=== PATIENT | male | born 1945 | race Caucasian/White ===

== ENCOUNTER 2018-06-04 17:58 | Inpatient (IN) ==
--- NOTE | 2018-06-04 18:07 | Emergency Department Note ---
Disposition Clinical Impression: Congestive heart failure, CAD (coronary artery disease), S/P cardiac pacemaker procedure, Cancer of lower lobe of left lung, History of recent pneumonia, COPD (chronic obstructive pulmonary disease), Frail elderly, Anemia, Renal insufficiency, Hypoxemia Disposition: Admitted As Inpatient General Adult HPI - General Stated complaint: Pneumonia x 2 wks,CHF Time Seen by Provider: 06/04/18 18:05 - History of Present Illness HPI Narrative: 72-year-old male reports emergency department complaining of increasing shortness of breath with chest pain. He has a known history of lung malignancy but reports he has been cancer free for 5 years. The patient also describes prior leg thrombus. The patient has a pacemaker as well as a coronary stent, he was recently diagnosed and treated for pneumonia. He has not oxygen dependent COPD. The patient recently had a AAA repair. The patient denies anticoagulant medication or bleeding. There is no history of abdominal pain back pain or syncope. No bleeding of any type. The patient has not been coughing blood. He has no history of CHF. There is been no leg swelling is not on diuretic medications. The patient was evaluated by his primary care physician repeated an x-ray noted worsening changes suggestive of CHF or infectious etiology per report. The patient was sent to the emergency department and states he is here to be admitted. There is no history of fever. He recently finished a course of antibiotics. - Related Data Home Medications Medication Instructions Recorded Confirmed Gabapentin [Gralise] 600 mg PO QID 11/06/15 04/17/18 Pravastatin Sodium [Pravachol] 40 mg PO DAILY 11/06/15 04/17/18 Tamsulosin [Flomax] 2 tab PO HS 11/06/15 04/17/18 Albuterol Sulfate [Albuterol 2 puff IH Q4H PRN 11/07/15 04/17/18 Inhaler] Carbidopa/Levodopa ER 50/200 1 tab PO BID 11/07/15 04/17/18 [Sinemet ER 50-200 Tab] Fluticasone/Vilanterol [Breo 1 puff IH DAILY 11/07/15 04/17/18 Ellipta 200-25 Mcg INH] Nitroglycerin [Nitrostat] 0.4 mg SL AD PRN 03/14/16 04/17/18 Ropinirole HCl [Requip] 4 mg PO HS 03/14/16 04/17/18 Metoprolol [Lopressor] 25 mg PO DAILY 06/27/16 04/17/18 Oxygen 2 each .ROUTE AD 07/18/16 04/17/18 Previous Rx's Medication Instructions Recorded Cyclobenzaprine [Flexeril] 5 mg PO TID #21 tablet 08/23/17 Omeprazole [PriLOSEC] 20 mg PO DAILY #30 cap 08/30/17 Allergies Allergy/AdvReac Type Severity Reaction Status Date / Time oxycodone [From Percocet] AdvReac Nausea Verified 06/04/18 18:17 All systems ED: reviewed and negative except as stated. Past Medical History - Past Medical History Medical history: Reports: aortic aneurysm, arthritis, coronary artery disease, hyperlipidemia, hypertension, myocardial infarction, other Surgical history: Reports: angioplasty/stent, herniorrhaphy, orthopedic, other, other, pacemaker Psychiatric history: Reports: no psych history - Social History Smoking Status: Never smoker Smokeless Tobacco Status: No Alcohol use: Reports: none Drug use: Reports: none Physical Exam - General Limitations: no limitations General appearance: alert, in no apparent distress - Head Head exam: atraumatic, normocephalic, normal inspection - Eye Eye exam: Present: normal appearance, PERRL, EOMI - ENT ENT exam: normal exam, normal oropharynx, mucous membranes moist - Neck Neck exam: Present: normal inspection, full ROM, trachea midline - Chest Chest inspection: Present: symmetric chest wall rise. Absent: tenderness - Respiratory Respiratory exam: Present: respiratory distress, prolonged expiratory phase. Absent: wheezes - Cardiovascular Cardiovascular exam: Present: regular rate, normal rhythm, normal heart sounds - Abdominal Exam Abdominal exam: Present: soft, Non-Tender, normal bowel sounds. Absent: tenderness, distention, guarding, rebound, rigidity, pulsatile mass - Extremities Exam Extremities exam: Present: normal inspection, normal capillary refill. Absent: joint swelling, calf tenderness - Expanded Lower Extremity Exam Neurovascular/Tendon exam: Present: normal capillary refill. Absent: motor deficit, sensory deficit, tendon deficit, extremity cold to touch, pallor - Back Exam Back exam: Present: normal inspection, full ROM. Absent: tenderness, CVA tenderness (R), CVA tenderness (L), vertebral tenderness - Neurological Exam Neurological exam: Present: alert, oriented X3, CN II-XII intact. Absent: motor sensory deficit - Psychiatric Psychiatric exam: Present: normal affect, normal mood - Skin Skin exam: Present: warm, dry, intact, normal color Course Vital Signs Temperature 97.8 F 06/04/18 18:14 Pulse Rate 67 06/04/18 18:14 Respiratory Rate 20 06/04/18 18:14 Blood Pressure 195/90 06/04/18 18:14 O2 Sat by Pulse Oximetry 92 06/04/18 18:14 Temperature 97.8 F 06/04/18 18:14 Pulse Rate 82 06/04/18 21:45 Respiratory Rate 20 06/04/18 21:45 Blood Pressure 193/93 06/04/18 21:45 O2 Sat by Pulse Oximetry 97 06/04/18 21:45 Oxygen Delivery Oxygen Delivery Bipap Medical Decision Making - MDM Narrative Medical decision making narrative: The patient reports emergency department complaining of increasing shortness of breath. He was recently treated for pneumonia and his outpatient provider sent him to the ED for concerns regarding CHF. The patient has known history of CAD, has a pacemaker in situ, he is currently not anticoagulated, he does have a history of lung cancer which has been in remission, he states he had a prior venous thrombus. The patient has had chest pain when breathing in and out. He does not describe radiating chest pain to the arms or jaw. There is no history of acute leg swelling or pain coughing up blood or syncope. The patient denies abdominal pain. He has had a recent AAA repair. There is no history of confusion or difficulty moving the arms or legs and apparently. The patient ca me in for concerns regarding shortness of breath with describes is much worse when he lays flat. The patient does not take diuretic medication currently. In the emergency department the patient was monitored. His EKG showed a patient paced rhythm. Troponin minimally elevated. Anemia and renal insufficiency noted. Notably elevated BNP. CTA chest reveals no embolus. Bilateral pleural effusions suggestive of CHF are reported an element of pneumonia is also possible. Levaquin given in the emergency department. Blood culture sent. Lactic acid negative, white count normative. Aspirin Lasix and nitroglycerin also given. In the emergency department the patient was monitored and maine venegas scribed increasing dyspnea on 2 L nasal cannula, his oxygen saturation dropped down 84%. He remained conscious and cooperative, and oxygen mask was placed and his oxygen level went to 94%. Respiratory therapy was notified and BiPAP was initiated. After BiPAP was placed, the patient's oxygen saturations went to 97% and he was able to stand up in the room and hold urinal in his hand, he is beginning to void. ST elevations are noted probably from pacemaker pulse, does not appear to meet Scarbossa's criteria. I reviewed the patient's paced EKG/ST elevation as well as elevated troponin and current status with the hospitalist. After discussion and review, we do not suspect STEMI at this time. The patient has been accepted by the hospitalist and is currently stable pending admission. ABG pending. The patient and his are highly agreeable to admission. - Lab Data Lab results reviewed: Yes I reviewed the patient's lab results. Result diagrams: 06/04/18 18:25 06/04/18 18:25 Lab Results 06/04/18 06/04/18 06/04/18 Range/Units 18:25 18:25 18:25 WBC 8.4 (4.3-11.1) K/mcL RBC 4.29 (4.19-5.50) M/mcL Hgb 11.4 L (12.9-16.9) g/dL Hct 37.9 (37.5-50.1) % MCV 88.3 (83.0-100.0) fL MCH 26.6 L (28.0-33.3) pg MCHC 30.1 L (31.6-35.5) g/dL RDW 16.8 H (11.5-14.5) % Plt Count 255 (140-400) K/mcL MPV 9.6 (9.4-12.4) fL Immature Gran % 0.5 (0-4) % Seg Neutrophils % 73.9 % Lymphocytes % 15.7 % Monocytes % 7.2 % Eosinophils % 2.0 % Basophils % 0.7 % Neutrophils # 6.2 (1.6-8.9) K/mcL Lymphocytes # 1.3 (0.6-4.6) K/mcL Monocytes # 0.6 (0.0-1.3) K/mcL Eosinophils # 0.2 (0.0-0.6) K/mcL Basophils # 0.1 (0.0-0.2) K/mcL PT 13.5 H (9.4-12.1) Seconds INR 1.2 APTT 33.9 (26.0-36.0) Seconds Sodium 139 (136-145) mEq/L Potassium 4.3 (3.5-5.1) mEq/L Chloride 107 (98-107) mEq/L Carbon Dioxide 24 (23-29) mEq/L BUN 26 H (8-23) mg/dL Creatinine 1.29 (0.70-1.30) mg/dL Est GFR ( Amer) > 60 (> 60) Est GFR (Non-Af Amer) 55 L (> 60) BUN/Creatinine Ratio 20 (6-26) Glucose 157 H (70-105) mg/dL Calculated Osmolality 296 (280-300) Lactic Acid (0.5-2.2) mmol/L Calcium 9.3 (8.6-10.3) mg/dL Total Bilirubin 0.6 (0.3-1.0) mg/dL Direct Bilirubin 0.2 (0.0-0.2) mg/dL Indirect Bilirubin 0.4 (0.0-1.2) mg/dL AST 6 L (13-39) Units/L ALT < 3 L (7-52) Units/L Alkaline Phosphatase 138 H (34-104) Units/L Troponin I 0.05 H* (< 0.04) ng/mL C-Reactive Protein (Less than 10) mg/L B-Natriuretic Peptide (Less than 100) pg/mL Serum Total Protein 7.0 (6.4-8.9) g/dL Albumin 3.9 (3.5-5.7) g/dL Globulin 3.1 (2.4-3.5) g/dL Albumin/Globulin Ratio 1.3 (1.1-2.2) 06/04/18 06/04/18 06/04/18 Range/Units 18:25 18:25 18:25 WBC (4.3-11.1) K/mcL RBC (4.19-5.50) M/mcL Hgb (12.9-16.9) g/dL Hct (37.5-50.1) % MCV (83.0-100.0) fL MCH (28.0-33.3) pg MCHC (31.6-35.5) g/dL RDW (11.5-14.5) % Plt Count (140-400) K/mcL MPV (9.4-12.4) fL Immature Gran % (0-4) % Seg Neutrophils % % Lymphocytes % % Monocytes % % Eosinophils % % Basophils % % Neutrophils # (1.6-8.9) K/mcL Lymphocytes # (0.6-4.6) K/mcL Monocytes # (0.0-1.3) K/mcL Eosinophils # (0.0-0.6) K/mcL Basophils # (0.0-0.2) K/mcL PT (9.4-12.1) Seconds INR APTT (26.0-36.0) Seconds Sodium (136-145) mEq/L Potassium (3.5-5.1) mEq/L Chloride (98-107) mEq/L Carbon Dioxide (23-29) mEq/L BUN (8-23) mg/dL Creatinine (0.70-1.30) mg/dL Est GFR ( Amer) (> 60) Est GFR (Non-Af Amer) (> 60) BUN/Creatinine Ratio (6-26) Glucose (70-105) mg/dL Calculated Osmolality (280-300) Lactic Acid 2.1 (0.5-2.2) mmol/L Calcium (8.6-10.3) mg/dL Total Bilirubin (0.3-1.0) mg/dL Direct Bilirubin (0.0-0.2) mg/dL Indirect Bilirubin (0.0-1.2) mg/dL AST (13-39) Units/L ALT (7-52) Units/L Alkaline Phosphatase (34-104) Units/L Troponin I (< 0.04) ng/mL C-Reactive Protein 36 H (Less than 10) mg/L B-Natriuretic Peptide 4646 H (Less than 100) pg/mL Serum Total Protein (6.4-8.9) g/dL Albumin (3.5-5.7) g/dL Globulin (2.4-3.5) g/dL Albumin/Globulin Ratio (1.1-2.2) 06/04/18 Range/Units 20:53 WBC (4.3-11.1) K/mcL RBC (4.19-5.50) M/mcL Hgb (12.9-16.9) g/dL Hct (37.5-50.1) % MCV (83.0-100.0) fL MCH (28.0-33.3) pg MCHC (31.6-35.5) g/dL RDW (11.5-14.5) % Plt Count (140-400) K/mcL MPV (9.4-12.4) fL Immature Gran % (0-4) % Seg Neutrophils % % Lymphocytes % % Monocytes % % Eosinophils % % Basophils % % Neutrophils # (1.6-8.9) K/mcL Lymphocytes # (0.6-4.6) K/mcL Monocytes # (0.0-1.3) K/mcL Eosinophils # (0.0-0.6) K/mcL Basophils # (0.0-0.2) K/mcL PT (9.4-12.1) Seconds INR APTT (26.0-36.0) Seconds Sodium (136-145) mEq/L Potassium (3.5-5.1) mEq/L Chloride (98-107) mEq/L Carbon Dioxide (23-29) mEq/L BUN (8-23) mg/dL Creatinine (0.70-1.30) mg/dL Est GFR ( Amer) (> 60) Est GFR (Non-Af Amer) (> 60) BUN/Creatinine Ratio (6-26) Glucose (70-105) mg/dL Calculated Osmolality (280-300) Lactic Acid 1.7 (0.5-2.2) mmol/L Calcium (8.6-10.3) mg/dL Total Bilirubin (0.3-1.0) mg/dL Direct Bilirubin (0.0-0.2) mg/dL Indirect Bilirubin (0.0-1.2) mg/dL AST (13-39) Units/L ALT (7-52) Units/L Alkaline Phosphatase (34-104) Units/L Troponin I (< 0.04) ng/mL C-Reactive Protein (Less than 10) mg/L B-Natriuretic Peptide (Less than 100) pg/mL Serum Total Protein (6.4-8.9) g/dL Albumin (3.5-5.7) g/dL Globulin (2.4-3.5) g/dL Albumin/Globulin Ratio (1.1-2.2) - Radiology Data Radiology results reviewed: Yes I reviewed the patient's radiology results.
[2018-06-04] MEDS ORDERED: Isovue-370 500 ML BOTTLE IVP ONE (18:40)
[2018-06-04 18:42] LABS: Basophils # 0.1 K/mcL (0.0-0.2); Basophils % 0.7 %; Eosinophils # 0.2 K/mcL (0.0-0.6); Hematocrit 37.9 % (37.5-50.1); Hemoglobin 11.4 g/dL (12.9-16.9); Immature Granulocytes % 0.5 % (0-4); Lymphocytes # 1.3 K/mcL (0.6-4.6); Lymphocytes % 15.7 %; Mean Corpuscular HGB Conc 30.1 g/dL (31.6-35.5); Mean Corpuscular Hemoglobin 26.6 pg (28.0-33.3); Mean Corpuscular Volume 88.3 fL (83.0-100.0); Mean Platelet Volume 9.6 fL (9.4-12.4); Monocytes # 0.6 K/mcL (0.0-1.3); Monocytes % 7.2 %; Neutrophils # 6.2 K/mcL (1.6-8.9); Platelet Count 255 K/mcL (140-400); Red Blood Count 4.29 M/mcL (4.19-5.50); Red Cell Distribution Width 16.8 % (11.5-14.5); Segmented Neutrophils % 73.9 %
[2018-06-04] MEDS ORDERED: methylPREDNISolone 125 MG/2 ML VIAL IVP ONE (18:42)
[2018-06-04 18:49] LABS: INR 1.2; Prothrombin Time 13.5 Seconds (9.4-12.1)
[2018-06-04 18:52] LABS: Activated Partial Thrombo Time 33.9 Seconds (26.0-36.0)
[2018-06-04 19:05] LABS: Alanine Aminotransferase < 3 Units/L (7-52); Albumin 3.9 g/dL (3.5-5.7); Albumin/Globulin Ratio 1.3 (1.1-2.2); Alkaline Phosphatase 138 Units/L (34-104); Aspartate Amino Transferase 6 Units/L (13-39); BUN/Creatinine Ratio 20 (6-26); Bilirubin,Direct 0.2 mg/dL (0.0-0.2); Bilirubin,Indirect 0.4 mg/dL (0.0-1.2); Bilirubin,Total 0.6 mg/dL (0.3-1.0); Blood Urea Nitrogen 26 mg/dL (8-23); Calcium 9.3 mg/dL (8.6-10.3); Carbon Dioxide 24 mEq/L (23-29); Chloride 107 mEq/L (98-107); Globulin 3.1 g/dL (2.4-3.5); Glucose 157 mg/dL (70-105); Osmolality,Calculated 296 (280-300); Potassium 4.3 mEq/L (3.5-5.1); Sodium 139 mEq/L (136-145); Troponin I 0.05 ng/mL (< 0.04); eGFR For Non-African Americans 55 (> 60)
[2018-06-04] MEDS ORDERED: Levofloxacin 750 MG/150 ML 750 MG/150 ML BAG IVPB ONE (21:01)
[2018-06-04] MEDS ORDERED: Furosemide 80 MG in 0.9 % Sodium Chloride 50 ML IVPB ONE (21:02)
[2018-06-04] MEDS ORDERED: Furosemide 40 MG/4 ML VIAL ONE (21:19)
[2018-06-04] MEDS ORDERED: Nitroglycerin 1 INCH/GM PACKET TP ONE (21:20)
[2018-06-04] MEDS ORDERED: Nitroglycerin 1 INCH/GM PACKET ONE (21:20)
[2018-06-04] MEDS ORDERED: Furosemide 40 MG/4 ML VIAL IVP ONE (21:37)
[2018-06-04 22:25] LABS: ABG Base Excess -1 mEq/L (-2 to 3); ABG HCO3 23 mEq/L (21-27); ABG Oxygen Saturation 96 % (95-98); ABG PCO2 36 mmHg (35-45); ABG PH 7.41 pH Units (7.32-7.45); ABG PO2 84 mmHg (85-104); ABG TCO2 24 mEq/L (20-26); Blood Gas PEEP 5 cm H2O; Blood Gas Respiration Rate 12
[2018-06-04] MEDS ORDERED: Aspirin Enteric Coated 325 MG Tablet PO ONE (23:33)
[2018-06-04] MEDS ORDERED: Naloxone 0.4 MG/ML INJ IVP PRN (23:37)
[2018-06-04] MEDS ORDERED: NON-FORMULARY MEDICATION 1 EACH EACH (Ropinirole Hcl [Requip] 4 MG) PO SCH (23:45)
[2018-06-05] MEDS: rOPINIRole 3 MG, rOPINIRole 1 MG PO SCH ×2 (00:04→20:45)
[2018-06-05] MEDS: Gabapentin 300 MG CAPSULE PO SCH ×5 (00:04→20:45)
--- NOTE | 2018-06-05 00:14 | Internal Med History&Physical ---
<Marcelo Greenberg R - Last Filed: 06/05/18 00:49> Date of Encounter: 06/05/18 Time of Encounter: 23:25 Internal Medicine - H&P: HPI Chief complaint: Shortness of breath Admitted From: Emergency Dept Plans for Post Hospital Care: Home History of present illness: Mr. 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 Known COPD on 2 L NC at home at night, CAD with pacemaker and stents, HTN, HLD, restless leg syndrome. Presented from outpatient office for evaluation of worsening shortness of breath and enlarging left pleural effusion. Patient states that he was treated for pneumonia in outpatient setting, he is unsure of what antibiotics however he did complete his course. States that initially shortness of breath did improve however over the last 3-4 days he has noted significantly worsening shortness of breath was associated wheezing and orthopnea, as well as chest pressure that is worse during inspiration. Denies abdominal pain, nausea, vomiting, change in bowels, fever, or chills. Evaluation in the emergency department did reveal hemoglobin of 11.4, WBC of 8.4, INR 1.2, serum creatinine 1.29, and BNP of 4600. Initial vital signs stable with persistent hypertension with systolic blood pressure in the 190s and low 200s. In the emergency department the patient did not desaturate with noted increased work of breathing. He was placed on BiPAP, given IV Lasix, with some improvement in his subjective and objective shortness of breath. Chest x-ray and chest CT did reveal large left pleural effusion with associated atelectasis versus pneumonia. at the time of my evaluation patient was breathing comfortably. He states that his respiratory symptoms have largely improved and he feels almost back to his baseline. Past Med Surg Social Fam HX - Past Medical History Medical history: aortic aneurysm, arthritis, coronary artery disease, hyperlipidemia, hypertension, myocardial infarction, other Additional medical history: lung nodules, emphysema, aortic anorysm, restless leg syndrome Psychiatric history: no psych history - Past Surgical History Surgical History: angioplasty/stent, herniorrhaphy, orthopedic, other, other, pacemaker Additional surgical history: stent x1, stent in aneurysm - Social History Smoking Status: Light tobacco smoker Smokeless Tobacco Status: No Alcohol use: none Drug use: none - Family History Father Living Status: Hx Family Cardiac Disorders: Yes Hx Family Respiratory Disorders: Yes Hx Family Cancer: No Hx Family GI Disorders: No Internal Medicine - H&P: Meds Gabapentin [Gralise] 600 mg PO QID 11/06/15 [History] Pravastatin Sodium [Pravachol] 40 mg PO DAILY 11/06/15 [History] Tamsulosin [Flomax] 2 tab PO HS 11/06/15 [History] Albuterol Sulfate [Albuterol Inhaler] 2 puff IH Q4H PRN 11/07/15 [History] Carbidopa/Levodopa ER 50/200 [Sinemet ER 50-200 Tab] 1 tab PO BID 11/07/15 [History] Fluticasone/Vilanterol [Breo Ellipta 200-25 Mcg INH] 1 puff IH DAILY 11/07/15 [History] Nitroglycerin [Nitrostat] 0.4 mg SL AD PRN 03/14/16 [History] Ropinirole HCl [Requip] 4 mg PO HS 03/14/16 [History] Metoprolol [Lopressor] 25 mg PO DAILY 06/27/16 [History] Oxygen 2 each .ROUTE AD 07/18/16 [History] Cyclobenzaprine [Flexeril] 5 mg PO TID #21 tablet 08/23/17 [Rx] Omeprazole [PriLOSEC] 20 mg PO DAILY #30 cap 08/30/17 [Rx] Allergy/AdvReac Type Severity Reaction Status Date / Time oxycodone [From Percocet] AdvReac Nausea Verified 06/04/18 18:17 All Systems PM: A 10-system review of systems was performed and is negative for pertinent findings except as documented above in the HPI. - Constitutional Constitutional: no chills, no fever(s) - EENT Eyes: no blurry vision, no diplopia Nose, mouth and throat: no facial pain, no neck pain - Cardiovascular Cardiovascular ROS IM: dyspnea, orthopnea, no chest pain, no diaphoresis, no lightheadedness, no palpitations, no syncope - Respiratory Respiratory: dyspnea, wheezing, no cough, no hemoptysis - Gastrointestinal Gastrointestinal: no abdominal pain, no diarrhea, no hematemesis, no hematochezia, no melena, no nausea, no vomiting - Genitourinary Genitourinary ROS male: no dysuria, no flank pain, no hematuria - Musculoskeletal Musculoskeletal ROS IM: arthralgias, no muscle weakness - Integumentary Integumentary IM: no erythema, no rash - Neurological Neurological ROS: no confusion, no dizziness, no focal weakness - Psychiatric Psychiatric: no anxiety, no confusion, no depression - Hematologic/Lymphatic Hematologic/Lymphatic: no easy bleeding, no easy bruising - Constitutional Vitals: Temp Pulse Resp BP Pulse Ox 98.2 F 82 22 208/98 97 06/04/18 22:09 06/04/18 22:09 06/04/18 22:09 06/04/18 22:09 06/04/18 22:09 Exam: General: Patient seated upright in bed, no apparent distress HEENT: Atraumatic, pupils PERRLA with EOMI, anicteric sclera, moist mucous membranes Neck: Soft, full range of motion Cardio vascular: Regular rate and rhythm, no murmurs auscultation Respiratory: Diminished left lower lung field with associated crackles, no wheezing, or rhonchi Abdomen: Soft, nontender, nondistended, positive bowel sounds Extremities: No swelling or edema, peripheral pulses intact Neuro: Alert and oriented to person, place, and situation. No focal deficits Psych: Appropriate mood and affect, conversant and pleasant Internal Med - H&P Results - Labs CBC & Chem 7: 06/04/18 18:25 06/04/18 18:25 Labs: Short CBC 06/04/18 Range/Units 18:25 WBC 8.4 (4.3-11.1) K/mcL Hgb 11.4 L (12.9-16.9) g/dL Hct 37.9 (37.5-50.1) % Plt Count 255 (140-400) K/mcL Neutrophils # 6.2 (1.6-8.9) K/mcL BMP 06/04/18 18:25 Sodium 139 Potassium 4.3 Chloride 107 Carbon Dioxide 24 BUN 26 H Creatinine 1.29 Glucose 157 H Calcium 9.3 Cardiac Enzymes 06/04/18 Range/Units 18:25 Troponin I 0.05 H* (< 0.04) ng/mL Liver Function 06/04/18 Range/Units 18:25 Total Bilirubin 0.6 (0.3-1.0) mg/dL Direct Bilirubin 0.2 (0.0-0.2) mg/dL AST 6 L (13-39) Units/L ALT < 3 L (7-52) Units/L Alkaline Phosphatase 138 H (34-104) Units/L Albumin 3.9 (3.5-5.7) g/dL - ABG Interpretation ABG results: 06/04/18 22:22 ABG pH 7.41 ABG pCO2 36 ABG pO2 84 L ABG HCO3 23 ABG Total CO2 24 ABG O2 Saturation 96 ABG Base Excess -1 - Impressions ITS Impressions Chest CTA 06/04/18 18:40 IMPRESSION: 1. Negative CT angiogram for acute pulmonary embolism. 2. Bilateral pleural effusions, left greater than right and diffuse interstitial septal thickening suggesting pulmonary edema. 3. More focal airspace consolidation within the lingula which could indicate a pneumonia. 4. Severe emphysematous changes. D/ / 06/04/2018 20:50:10 Jaswant Carl MD / [facility] Interpreting Provider: Jaswant Carl MD - Assessment and plan (1) Acute and chronic respiratory failure with hypoxia Current Visit: Yes Status: Acute Assessment and plan: Acute on chronic respiratory failure with hypoxia requiring BiPAP initially, secondary to suspected CHF exacerbation and large left pleural effusion. Known COPD with home oxygen requirement 2 L by nasal cannula at night Plan: Oxygen supplementation as necessary to maintain O2 saturation of >92% BiPAP available as needed Lasix 40 mg IV twice a day Nebs (2) Pleural effusion, left Current Visit: Yes Status: Acute Assessment and plan: Large left pleural effusion which is enlarging Secondary to suspected CHF exacerbation, however patient does have a history of small cell lung cancer Improving respiratory status after Lasix Plan: Continue with IV Lasix as above Monitor I's and O's Daily weights Consult to pulmonology for possible thoracentesis given size, symptoms, and history of malignancy (3) COPD (chronic obstructive pulmonary disease) Current Visit: Yes Status: Acute Assessment and plan: Known COPD with exacerbation secondary to pneumonia and CHF with pleural effusion Recent PFTs demonstrate minimal improvement with bronchodilator therapy Plan: We will continue patient's home medications Continue duo nebs 40 mg methylprednisolone every 6 hours, de-escalate as appropriate Supplemental oxygenation Antibiotics as above for pneumonia Qualifiers: COPD type: emphysema Emphysema type: centrilobular Qualified Code(s): J43.2 - Centrilobular emphysema (4) Congestive heart failure (CHF) Current Visit: Yes Status: Suspected Assessment and plan: Suspect CHF in exacerbation Plan: Will obtain new echocardiogram Continue IV Lasix twice a day Daily weights Cardiology consultation for new onset CHF Qualifiers: Heart failure type: unspecified Heart failure chronicity: acute on chronic Qualified Code(s): I50.9 - Heart failure, unspecified (5) HTN (hypertension) Current Visit: No Status: Acute Assessment and plan: Hypertension upon admission with systolic blood pressure in the 190s and low 200s. Plan: We will continue home metoprolol and losartan When necessary hydralazine Lasix twice a day Qualifiers: Hypertension type: essential hypertension Qualified Code(s): I10 - Essential (primary) hypertension (6) Elevated troponin Current Visit: Yes Status: Acute Assessment and plan: Mildly elevated troponin upon admission with 0.05 Is likely secondary to CHF exacerbation and volume status Plan: We will continue to trend troponin 3 Admit for observation to telemetry Cardiology consultation for new onset CHF (7) DVT prophylaxis Current Visit: Yes Status: Acute Assessment and plan: DVT prophylaxis with EPCDs for now Heparin subcutaneous can be initiated if clear that patient will not undergo invasive procedures after consult service evaluation. (8) CAD (coronary artery disease) Current Visit: Yes Status: Acute Assessment and plan: Known coronary artery disease, status post stents and pacemaker Mild elevation in troponin likely secondary to CHF volume status Plan: Trend troponins 3 Continue home beta nevaeh and ARB Continue home statin Appears the patient may take Plavix daily, however patient denies this medi cation. Will need to verify with pharmacy in the morning if patient fills Plavix prescription currently and start if indicated Qualifiers: Coronary Disease-Associated Artery/Lesion type: unspecified vessel or lesion type Associated angina: with unspecified angina Qualified Code(s): I25.119 - Atherosclerotic heart disease of [place] coronary artery with unspecified angina pectoris (9) Non-small cell carcinoma of left lung Current Visit: No Status: Chronic Assessment and plan: Known squamous cell cancer of the left lower lobe status post SBRP in remission Worsening left pleural effusion Plan: We will consult pulmonology for possible thoracentesis given symptomatology as well as history of malignancy (10) Community acquired pneumonia Current Visit: Yes Status: Acute Assessment and plan: Community-acquired pneumonia with recent completion of outpatient antibiotic therapy No elevation in white blood cell count, afebrile Consolidation identified on chest CT consistent with atelectasis versus pneumonia Suspicion for ongoing pneumonia is low given current findings and recent antibiotic course completion Plan: Will initiate antibiotic therapy for COPD exacerbation and pneumonia with ceftriaxone and azithromycin, however given low suspicion for ongoing pneumonia may de-escalated and discontinued pending clinical improvement prior to completion of full course. We will also obtain urine strep and legionella antigens Blood cultures collected by emergency department, follow for completion Qualifiers: Laterality: left Lung location: unspecified part of lung Qualified Code(s): J18.9 - Pneumonia, unspecified organism - Time Spent With Patient Total time spent is greater than 50% in coordination of care (as documented) at patient's floor/unit and/or counseling patient: <Brit Mckeon - Last Filed: 06/05/18 07:29> Date of Encounter: 06/04/18 Internal Medicine - H&P: HPI History of present illness: Mr. Laughlin is a 72 year old male All Systems PM: A 10-system review of systems was performed and is negative for pertinent findings except as documented above in the HPI. - Constitutional Vitals: Temp Pulse Resp BP Pulse Ox 98.2 F 69 16 150/77 95 06/05/18 04:00 06/05/18 04:00 06/05/18 04:00 06/05/18 04:00 06/05/18 04:00 Internal Med - H&P Results - Labs CBC & Chem 7: 06/05/18 00:25 06/05/18 00:25 Labs: Short CBC 06/04/18 06/05/18 Range/Units 18:25 00:25 WBC 8.4 9.3 (4.3-11.1) K/mcL Hgb 11.4 L 11.4 L (12.9-16.9) g/dL Hct 37.9 37.3 L (37.5-50.1) % Plt Count 255 255 (140-400) K/mcL Neutrophils # 6.2 8.8 (1.6-8.9) K/mcL BMP 06/04/18 06/05/18 18:25 00:25 Sodium 139 138 Potassium 4.3 4.7 Chloride 107 102 Carbon Dioxide 24 26 BUN 26 H 26 H Creatinine 1.29 1.33 H Glucose 157 H 165 H Calcium 9.3 9.5 Cardiac Enzymes 06/04/18 06/05/18 Range/Units 18:25 00:25 Troponin I 0.05 H* 0.04 H* (< 0.04) ng/mL Liver Function 06/04/18 Range/Units 18:25 Total Bilirubin 0.6 (0.3-1.0) mg/dL Direct Bilirubin 0.2 (0.0-0.2) mg/dL AST 6 L (13-39) Units/L ALT < 3 L (7-52) Units/L Alkaline Phosphatase 138 H (34-104) Units/L Albumin 3.9 (3.5-5.7) g/dL - ABG Interpretation ABG results: 06/04/18 22:22 ABG pH 7.41 ABG pCO2 36 ABG pO2 84 L ABG HCO3 23 ABG Total CO2 24 ABG O2 Saturation 96 ABG Base Excess -1 - Impressions ITS Impressions Chest CTA 06/04/18 18:40 IMPRESSION: 1. Negative CT angiogram for acute pulmonary embolism. 2. Bilateral pleural effusions, left greater than right and diffuse interstitial septal thickening suggesting pulmonary edema. 3. More focal airspace consolidation within the lingula which could indicate a pneumonia. 4. Severe emphysematous changes. D/ / 06/04/2018 20:50:10 Jaswant Carl MD / [facility] Interpreting Provider: Jaswant Carl MD - Assessment and plan (1) HTN (hypertension) Current Visit: No Status: Acute Qualifiers: Hypertension type: essential hypertension Qualified Code(s): I10 - Essential (primary) hypertension (2) CAD (coronary artery disease) Current Visit: Yes Status: Acute Qualifiers: Coronary Disease-Associated Artery/Lesion type: unspecified vessel or lesion type Associated angina: with unspecified angina Qualified Code(s): I25.119 - Atherosclerotic heart disease of [place] coronary artery with unspecified angina pectoris (3) Non-small cell carcinoma of left lung Current Visit: No Status: Chronic (4) COPD (chronic obstructive pulmonary disease) Current Visit: Yes Status: Acute Qualifiers: COPD type: emphysema Emphysema type: centrilobular Qualified Code(s): J43.2 - Centrilobular emphysema (5) Acute and chronic respiratory failure with hypoxia Current Visit: Yes Status: Acute (6) Pleural effusion, left Current Visit: Yes Status: Acute (7) Congestive heart failure (CHF) Current Visit: Yes Status: Suspected Qualifiers: Heart failure type: unspecified Heart failure chronicity: acute on chronic Qualified Code(s): I50.9 - Heart failure, unspecified (8) Elevated troponin Current Visit: Yes Status: Acute (9) DVT prophylaxis Current Visit: Yes Status: Acute (10) Community acquired pneumonia Current Visit: Yes Status: Acute Qualifiers: Laterality: left Lung location: unspecified part of lung Qualified Code (s): J18.9 - Pneumonia, unspecified organism - Time Spent With Patient Total time spent is greater than 50% in coordination of care (as documented) at patient's floor/unit and/or counseling patient: - Attending Attestation I performed a history and physical examination of the patient and discussed his management with the resident. I reviewed the resident's note and agree with the assessment and plan of care. In short patient is a 72-year-old male with a past medical history of squamous cell carcinoma of the lung status post radiation therapy currently in remission, COPD on 2 L nasal cannula at night, coronary artery disease status post pacemaker who presents with worsening shortness of breath. Found to have a enlarging left pleural effusion. No clinical evidence of pneumonia. Was also noted to be hypertensive with a systolic blood pressure in the low 200s. CTA of the chest showed absent PE with bilateral pleural effusions, left greater than right, diffuse interstitial septal thickening suggestive of pulmonary edema. Patient found to have a BNP of over 4000 and elevated troponin the absence of reported chest pain or EKG changes. Patient admitted for acute hypoxic respiratory failure concerning for CHF exacerbation. Patient initially required BiPAP in the ED secondary to respiratory distress. He received IV Lasix and with improvement in his breathing. We will continue with strict I's and O's, daily weights; continue with Lasix with echo and cardiology consult to follow.
[2018-06-05 00:46] LABS: Basophils % 0.3 %; Eosinophils % 0.1 %; Hematocrit 37.3 % (37.5-50.1); Hemoglobin 11.4 g/dL (12.9-16.9); Immature Granulocytes % 0.6 % (0-4); Lymphocytes # 0.3 K/mcL (0.6-4.6); Mean Corpuscular HGB Conc 30.6 g/dL (31.6-35.5); Mean Corpuscular Hemoglobin 26.5 pg (28.0-33.3); Mean Corpuscular Volume 86.7 fL (83.0-100.0); Mean Platelet Volume 10.1 fL (9.4-12.4); Monocytes # 0.1 K/mcL (0.0-1.3); Monocytes % 0.5 %; Neutrophils # 8.8 K/mcL (1.6-8.9); Platelet Count 255 K/mcL (140-400); Red Cell Distribution Width 16.8 % (11.5-14.5); Segmented Neutrophils % 95.5 %
[2018-06-05 01:00] LABS: BUN/Creatinine Ratio 20 (6-26); Blood Urea Nitrogen 26 mg/dL (8-23); Calcium 9.5 mg/dL (8.6-10.3); Carbon Dioxide 26 mEq/L (23-29); Chloride 102 mEq/L (98-107); Glucose 165 mg/dL (70-105); Magnesium 2.2 mg/dL (1.6-2.6); Osmolality,Calculated 294 (280-300); Potassium 4.7 mEq/L (3.5-5.1); Sodium 138 mEq/L (136-145); eGFR For Non-African Americans 53 (> 60)
[2018-06-05] MEDS ORDERED: *HR* Labetalol 20 MG/4 ML SYRINGE IVP ONE (02:20)
[2018-06-05] MEDS: MethylPREDNISolone 40 MG/ML VIAL IVP SCH ×4 (05:42→23:02)
[2018-06-05] MEDS ORDERED: Azithromycin 500 MG in D5% in Water 250 ML IVPB ONE (06:01)
[2018-06-05] MEDS ORDERED: Breo Ellipta 200-25 Mcg IH SCH (09:00)
[2018-06-05] MEDS ORDERED: cefTRIAXone 1,000 MG in Water for inj. (sterile) 20 ML 10 ML IVP SCH (09:00)
[2018-06-05] MEDS: Carbidopa/Levodopa ER 50/200 TABLET PO SCH ×2 (09:02→20:46)
[2018-06-05] MEDS: Furosemide 40 MG/4 ML VIAL IVP SCH ×2 (09:02→17:04)
--- NOTE | 2018-06-05 09:22 | Pulmonology Consult Note ---
<ElainaDulce M - Last Filed: 06/05/18 17:11> Date of Encounter: 06/05/18 Medications and Allergies Gabapentin [Gralise] 600 mg PO QID 11/06/15 [History] Pravastatin Sodium [Pravachol] 40 mg PO DAILY 11/06/15 [History] Tamsulosin [Flomax] 2 tab PO HS 11/06/15 [History] Albuterol Sulfate [Albuterol Inhaler] 2 puff IH Q4H PRN 11/07/15 [History] Carbidopa/Levodopa ER 50/200 [Sinemet ER 50-200 Tab] 1 tab PO BID 11/07/15 [History] Fluticasone/Vilanterol [Breo Ellipta 200-25 Mcg INH] 1 puff IH DAILY 11/07/15 [History] Nitroglycerin [Nitrostat] 0.4 mg SL AD PRN 03/14/16 [History] Ropinirole HCl [Requip] 4 mg PO HS 03/14/16 [History] Metoprolol [Lopressor] 25 mg PO DAILY 06/27/16 [History] Oxygen 2 each .ROUTE AD 07/18/16 [History] Cyclobenzaprine [Flexeril] 5 mg PO TID #21 tablet 08/23/17 [Rx] Omeprazole [PriLOSEC] 20 mg PO DAILY #30 cap 08/30/17 [Rx] Allergy/AdvReac Type Severity Reaction Status Date / Time oxycodone [From Percocet] AdvReac Nausea Verified 06/04/18 18:17 All Systems: The remainder of the systems were reviewed and are negative Physical Examination Vital Signs: Vital Signs, Last 4 Hours Temp Pulse Resp BP Pulse Ox 06/05/18 16:00 98.0 F 61 16 177/90 96 06/05/18 14:11 160/90 Results - Laboratory Findings CBC and BMP: 06/05/18 00:25 06/05/18 00:25 ABG ABG pH 7.41 pH Units (7.32-7.45) 06/04/18 22:22 ABG pCO2 36 mmHg (35-45) 06/04/18 22:22 ABG pO2 84 mmHg (85-104) L 06/04/18 22:22 ABG O2 Saturation 96 % (95-98) 06/04/18 22:22 PT/INR, D-dimer PT 13.5 Seconds (9.4-12.1) H 06/04/18 18:25 Abnormal lab findings: Abnormal lab results Hgb 11.4 g/dL (12.9-16.9) L 06/05/18 00:25 Hct 37.3 % (37.5-50.1) L 06/05/18 00:25 MCH 26.5 pg (28.0-33.3) L 06/05/18 00:25 MCHC 30.6 g/dL (31.6-35.5) L 06/05/18 00:25 RDW 16.8 % (11.5-14.5) H 06/05/18 00:25 Lymphocytes # 0.3 K/mcL (0.6-4.6) L 06/05/18 00:25 PT 13.5 Seconds (9.4-12.1) H 06/04/18 18:25 ABG pO2 84 mmHg (85-104) L 06/04/18 22:22 BUN 26 mg/dL (8-23) H 06/05/18 00:25 Creatinine 1.33 mg/dL (0.70-1.30) H 06/05/18 00:25 Est GFR (Non-Af Amer) 53 (> 60) L 06/05/18 00:25 Glucose 165 mg/dL (70-105) H 06/05/18 00:25 AST 6 Units/L (13-39) L 06/04/18 18:25 ALT < 3 Units/L (7-52) L 06/04/18 18:25 Alkaline Phosphatase 138 Units/L (34-104) H 06/04/18 18:25 Troponin I 0.17 ng/mL (< 0.04) H* 06/05/18 13:20 C-Reactive Protein 36 mg/L (Less than 10) H 06/04/18 18:25 B-Natriuretic Peptide 4646 pg/mL (Less than 100) H 06/04/18 18:25 - Microbiology Findings Microbiology Findings: Microbiology, Last 48 Hours 06/04/18 18:26 Blood Culture - Preliminary Peripheral Venipuncture Culture is incubating and being continuously monitored for growth. Final report to follow. 06/04/18 18:25 Blood Culture - Preliminary Peripheral Venipuncture Culture is incubating and being continuously monitored for growth. Final report to follow. 06/04/18 18:40 Influenza Types A,B Antigen - Final Nasopharyngeal - Clinical Findings Intake & Output: Intake & Output 06/05/18 06/05/18 06/05/18 07:59 15:59 23:59 Intake Total 400 / 400 360 / 360 Output Total 1900 / 1900 Balance -1500 / -1500 360 / 360 Weight 74.8 kg Consult Discharge Plan - Plan Referrals: Marcelo Caldwell MD [Primary Care Provider] - - Attending Attestation I examined this patient and my medical decision-making was reviewed with the Resident Physician. I agree with the documented findings, disposition and treatment plan as described except to the extent set forth below. Patient seen and examined. Labs, radiology, chart personally reviewed. Agree with resident's history and physical, assessment, plan with following c omments: DAY CARE PROVIDER: Patient follows commands, Pulmonary: Acceptable oxygenation and ventilation and patient feels significantly better after he had diuresis with Lasix. I have explained to patient after he reviewed his CT chest that I suspect this is all from his heart failure with reduced ejection fraction since he had significant improvement very quickly. Patient has been evaluated by cardiology and I would recommend he needs to be on diuretics. As far as the CT chest abnormalities, I do not feel this is lung mass or cancer, probably around atelectasis or continuation of improvement of his previous pneumonia. However I have told him he needs a follow-up as outpatient to make sure there is no underlying malignancies and may need a PET scan or even biopsy. There is no improvement. I do not feel patient needs to be on broad-spectrum antibiotics at this time since he had received multiple courses and to focus on his cardiovascular disease and congestive heart failure in my opinion is primary team. Thank you very much for consultation and please call for any questions. I have explained this to patient and his family in the presence of the nurse at the bedside. 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 Additionally past medical history of COPD on 2 L nasal cannula at night, coronary artery disease status post pacemaker and stenting, hypertension, hyperlipidemia. Patient presents from clinic for evaluation of worsening shortness of breath and noted enlargement of left sided pleural effusion. - Recently completed treatment for outpatient pneumonia - symptoms resolved for a few days, but have returned - In ED - reported SOB; given lasix, supplemental O2, BIPAP and improved - BNP = 4646; Afebrile without leukocytosis; ABG wnl - CXR (06/04/18): Increasing moderate left pleural effusion - CT Chest (06/04/18): B/L Pleural effusions L>R; more focal airspace consolida tion within the lingula PLAN: Unlikely pneumonia given pt afebrile without leukocytosis; Hypoxia likely secondary to pleural effusion due to CHF exacerbation, with COPD exacerbation possibly secondary to pneumonia, pleural effusion - Cont O2 supplementation as needed; titrate to maintain O2 sat > 88% - BIPAP as needed - Cont methylprednisone 40mg Q6h - wean as tolerated - Cont Lasix BID, bronchodilators - Will consider thoracentesis today given moderate left-sided pleural effusion (2) Pleural effusion, left Current Visit: Yes Status: Acute Chest CTA (06/04/18): - Bilateral pleural effusions, left greater than right and diffuse interstitial septal thickening suggesting pulmonary edema. - More focal airspace consolidation within the lingula which could indicate a pneumonia. - Severe emphysematous changes. - Hx of malignancy - Sq Cell Carc of Left Lung s/p radiation therapy in July 2016, currently in remission - SOB, dyspnea improved with lasix and BIPAP PLAN: Pleural effusion likely secondary to CHF exacerbation - Will consider thoracentesis today - Cont Lasix BID - Cont supp O2 as needed; titrate to keep O2 > 88% - Monitor Is and Os; Daily weights (3) COPD (chronic obstructive pulmonary disease) Current Visit: Yes Status: Acute Hx COPD - likely exacerbation secondary to pneumonia and pleural effusion - Currently comfortable with O2 sats appropriate on 2L O2 via NC; no wheezes, rales, rhonchi, crackles PLAN: - Cont bronchodilators - Cont methylprednisone 40mg q6h - wean as tolerated - Supplemental O2 as needed - BIPAP PRN Qualifiers: COPD type: emphysema Emphysema type: centrilobular Qualified Code(s): J43.2 - Centrilobular emphysema (4) Community acquired pneumonia Current Visit: Yes Status: Acute Recently treated CAP with 5d antibiotic therapy outpatient; completed course and symptoms resolved for a few days - Symptoms returned as of 2-3 days ago - Associated with dry cough; denies fevers/chills, headache, sputum production, abdominal pain, n/v/d - Afebrile without leukocytosis - Influenza = negative PLAN: Dyspnea unlikely secondary to pneumonia given clinical picture - afebrile without leukocytosis; recently completed course of antibiotics - Follow up strep and legionella Ags; follow up blood cultures - Supplemental O2 as needed - With improving symptoms, may deescalate antibiotic therapy Qualifiers: Laterality: left Lung location: unspecified part of lung Qualified Code(s): J18.9 - Pneumonia, unspecified organism (5) Non-small cell carcinoma of left lung Current Visit: No Status: Chronic Known Squamous Cell Carcinoma of Left Lower Lung, s/p radiation therapy in July 2016, currently in remission - Worsening left sided pleural effusion PLAN: - Will consider thoracentesis today History of Present Illness Consult date: 06/05/18 Requesting physician: Marcelo Greenberg Reason for consult: pleural effusion Chief complaint: Dyspnea History of present illness: This is 72-year-old male with past medical history significant for 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 Additionally past medical history of COPD on 2 L nasal cannula only at night, coronary artery disease status post pacemaker and stenting, hypertension, hyperlipidemia. Patient presents from clinic for evaluation of worsening shortness of breath and noted enlargement of left sided pleural effusion. Recent diagnosis of pneumonia treated in outpatient setting with antibiotics. He notes he initially had resolution of symptoms, but in the past 3-4 days shortness of breath has worsened. Associated with wheezing, orthopnea (states he sleeps on 3-4 pillows at home), dry cough. Denies fevers/chills, headache, ear pain, nasal/sinus congestion, abdominal pain, n/v/d. Initial evaluation in the ED, patient was noted to have increased work of breathing. Was placed on BiPAP, given IV Lasix and pt reported improvement in shortness of breath. Blood cultures draw, and dose of Levaquin was given. Lab work significant for BNP = 4646. ABG = 7.41/36/84/23 CXR (06/04/18): - Increased moderate left pleural effusion and underlying left basilar airspace opacity due in part to passive atelectasis. Superimposed pneumonia and aspiration are not excluded. - Diffuse interstitial and perihilar alveolar edema suggestive congestive heart failure given mild cardiomegaly. Pneumonia could appear similar. - No significant change in trace right pleural effusion. Chest CTA (06/04/18): - Negative CT angiogram for acute pulmonary embolism. - Bilateral pleural effusions, left greater than right and diffuse interstitial septal thickening suggesting pulmonary edema. - More focal airspace consolidation within the lingula which could indicate a pneumonia. - Severe emphysematous changes. Consult to pulmonology placed to evaluate worsening left-sided pleural effusion for possible thoracentesis. Pt currently resting comfortably at bedside in no acute distress. O2 sats appropriate on 2L via NC. Notes he is feeling better from presentation yesterday. Past Med Surg Social Fam HX - Past Medical History Attestation: Yes The following information was validated with the patient. Source: patient, old records reviewed Medical history: aortic aneurysm, arthritis, coronary artery disease, h yperlipidemia, hypertension, myocardial infarction, other Additional medical history: lung nodules, emphysema, aortic anorysm, restless leg syndrome Psychiatric history: no psych history - Past Surgical History Surgical History: angioplasty/stent, herniorrhaphy, orthopedic, other, other, pacemaker Additional surgical history: stent x1, stent in aneurysm - Social History Smoking Status: Light tobacco smoker Smokeless Tobacco Status: No Alcohol use: none Drug use: none - Family History Father Living Status: Hx Family Cardiac Disorders: Yes Hx Family Respiratory Disorders: Yes Hx Family Cancer: No Hx Family GI Disorders: No All Systems: The remainder of the systems were reviewed and are negative - Constitutional Constitutional: no chills, no fatigue, no fever(s), no headache(s), no weakness - EENT Eyes: no loss of vision Ears: no decreased hearing Nose, mouth and throat: no dizziness, no headache(s), no nasal congestion, no sinus pain - Cardiovascular Cardiovascular: dyspnea, orthopnea, no chest pain, no chest pain at rest, no radiating jaw, neck or arm pain, no leg edema, no palpitations - Respiratory Respiratory: cough, dyspnea, no wheezing - Gastrointestinal Gastrointestinal: no abdominal pain, no diarrhea, no nausea, no vomiting - Neurological Neurological: no headache(s) Physical Examination Vital Signs: Vital Signs, Last 4 Hours Temp Pulse Resp BP Pulse Ox 06/05/18 07:57 98.5 F 79 14 179/98 90 General appearance: no acute distress, alert Eyes: nonicteric ENT: oropharynx moist Neck: supple Effort: normal Auscultation: bilateral: diminished breath sounds (B/L at lower lung bases) Cardiovascular: regular rate and rhythm Gastrointestinal: normoactive bowel sounds, soft, non-tender, non-distended Extremities: no cyanosis, no edema, pink and warm, pulses normal Gait: normal gait, normal posture normal mental status, non-focal exam, pupils equal and round, CN II-XII normal mood appropriate, affect normal Results - Laboratory Findings CBC and BMP: 06/05/18 00:25 06/05/18 00:25 ABG ABG pH 7.41 pH Units (7.32-7.45) 06/04/18 22:22 ABG pCO2 36 mmHg (35-45) 06/04/18 22:22 ABG pO2 84 mmHg (85-104) L 06/04/18 22:22 ABG O2 Saturation 96 % (95-98) 06/04/18 22:22 PT/INR, D-dimer PT 13.5 Seconds (9.4-12.1) H 06/04/18 18:25 Abnormal lab findings: Abnormal lab results Hgb 11.4 g/dL (12.9-16.9) L 06/05/18 00:25 Hct 37.3 % (37.5-50.1) L 06/05/18 00:25 MCH 26.5 pg (28.0-33.3) L 06/05/18 00:25 MCHC 30.6 g/dL (31.6-35.5) L 06/05/18 00:25 RDW 16.8 % (11.5-14.5) H 06/05/18 00:25 Lymphocytes # 0.3 K/mcL (0.6-4.6) L 06/05/18 00:25 PT 13.5 Seconds (9.4-12.1) H 06/04/18 18:25 ABG pO2 84 mmHg (85-104) L 06/04/18 22:22 BUN 26 mg/dL (8-23) H 06/05/18 00:25 Creatinine 1.33 mg/dL (0.70-1.30) H 06/05/18 00:25 Est GFR (Non-Af Amer) 53 (> 60) L 06/05/18 00:25 Glucose 165 mg/dL (70-105) H 06/05/18 00:25 AST 6 Units/L (13-39) L 06/04/18 18:25 ALT < 3 Units/L (7-52) L 06/04/18 18:25 Alkaline Phosphatase 138 Units/L (34-104) H 06/04/18 18:25 Troponin I 0.09 ng/mL (< 0.04) H* 06/05/18 07:25 C-Reactive Protein 36 mg/L (Less than 10) H 06/04/18 18:25 B-Natriuretic Peptide 4646 pg/mL (Less than 100) H 06/04/18 18:25 - Microbiology Findings Microbiology Findings: Microbiology, Last 48 Hours 06/04/18 18:26 Blood Culture - Preliminary Peripheral Venipuncture Culture is incubating and being continuously monitored for growth. Final report to follow. 06/04/18 18:25 Blood Culture - Preliminary Peripheral Venipuncture Culture is incubating and being continuously monitored for growth. Final report to follow. 06/04/18 18:40 Influenza Types A,B Antigen - Final Nasopharyngeal - Clinical Findings Intake & Output: Intake & Output 06/04/18 06/05/18 06/05/18 23:59 07:59 15:59 Intake Total 400 / 400 240 / 240 Output Total 375 / 375 1900 / 1900 Balance -375 / -375 -1500 / -1500 240 / 240 Weight 74.8 kg 74.8 kg
--- NOTE | 2018-06-05 09:30 | Cardiology Consult Note ---
Date of Encounter: 06/05/18 Time of Encounter: 08:00 Assessment and Plan (1) CHF (congestive heart failure) Current Visit: Yes Status: Chronic History of systolic dysfunction. His nuclear stress test was in December and showed EF of 35%. He is not on any home diuretics. No crackles or edema appreciated. He presented to the ED last night complaining of worsening shortness of breath. CT of the chest shows large left sided pleural effusion. He recently had a pneumonia and was treated outpatient with antibiotics. The pleural effusion could be related to CHF exacerbation vs. pneumonia vs. malignancy given history of left lung lobe squamous cell carcinoma. -Continue IV lasix -Added aldactone given his systolic heart dysfunction -Strict I/O -Continue diuresis, if no improvement recommend thoracentesis to determine the cause of pleural effusion Qualifiers: Heart failure type: systolic Heart failure chronicity: acute on chronic Qualified Code(s): I50.23 - Acute on chronic systolic (congestive) heart failure (2) Pleural effusion, left Current Visit: Yes Status: Acute Left pleural effusion. No crackles appreciated and no lower extremity edema. Because it is localized to one lung field it can be secondary to pneumonia vs. malignancy. 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 -Continue IV lasix -Added aldactone given his systolic heart dysfunction -Strict I/O -Recommend thoracentesis to determine the cause of pleural effusion (3) CAD (coronary artery disease) Current Visit: Yes Status: Chronic History of CAD. S/p stents in 2016 and pacemaker placement in 2016. Troponin mildly elevated today in setting of pleural effusion. Not complaining of chest pain. Continue home metoprolol. Continue home atorvastatin. Qualifiers: Coronary Disease-Associated Artery/Lesion type: unspecified vessel or lesion type Associated angina: without angina Qualified Code(s): I25.10 - Atherosclerotic heart disease of [place] coronary artery without angina pectoris Discussion w patient/family: The assessment and plan as outlined above was discussed with the patient and/or family members who expressed understanding and agreement. All questions were answered. Thank you for involving us in the care of your patient. Please call with any questions. History of Present Illness Consult date: 06/05/18 Requesting physician: Marcelo Greenberg Consult reason: CHF with pleural effusion Chief complaint: Shortness of breath History of present illness: Mr. Laughlin is a 72 year old male who presented to the ED due to shortness of breath. He has history of squamous cell left lower lung lobe and s/p radiation in July of 2016, in remission at this time. He has history of systolic heart failure with EF of 35%. Also has history of COPD on 2 liters of nasal canula, CA D with pacemaker and stents, HTN and HLD. In the ED the CT shows large left pleural effusion in setting of worsening shortness of breath. He was recently treated for pneumonia in outpatient setting with antibiotics. He is also having orthopnea. He denies lower extremity edema or chest pain. He is not on home antidiuretic. Denies fever, chills, nausea or emesis. Past Med Surg Social Fam HX - Past Medical History Medical history: aortic aneurysm, arthritis, coronary artery disease, hyperlipidemia, hypertension, myocardial infarction, other Additional medical history: lung nodules, emphysema, aortic anorysm, restless leg syndrome Psychiatric history: no psych history - Past Surgical History Surgical History: angioplasty/stent, herniorrhaphy, orthopedic, other, other, pacemaker Additional surgical history: stent x1, stent in aneurysm - Social History Smoking Status: Light tobacco smoker Smokeless Tobacco Status: No Alcohol use: none Drug use: none - Family History Father Living Status: Hx Family Cardiac Disorders: Yes Hx Family Respiratory Disorders: Yes Hx Family Cancer: No Hx Family GI Disorders: No Medications and Allergies Gabapentin [Gralise] 600 mg PO QID 11/06/15 [History] Pravastatin Sodium [Pravachol] 40 mg PO DAILY 11/06/15 [History] Tamsulosin [Flomax] 2 tab PO HS 11/06/15 [History] Albuterol Sulfate [Albuterol Inhaler] 2 puff IH Q4H PRN 11/07/15 [History] Carbidopa/Levodopa ER 50/200 [Sinemet ER 50-200 Tab] 1 tab PO BID 11/07/15 [History] Fluticasone/Vilanterol [Breo Ellipta 200-25 Mcg INH] 1 puff IH DAILY 11/07/15 [History] Nitroglycerin [Nitrostat] 0.4 mg SL AD PRN 03/14/16 [History] Ropinirole HCl [Requip] 4 mg PO HS 03/14/16 [History] Metoprolol [Lopressor] 25 mg PO DAILY 06/27/16 [History] Oxygen 2 each .ROUTE AD 07/18/16 [History] Cyclobenzaprine [Flexeril] 5 mg PO TID #21 tablet 08/23/17 [Rx] Omeprazole [PriLOSEC] 20 mg PO DAILY #30 cap 08/30/17 [Rx] Allergy/AdvReac Type Severity Reaction Status Date / Time oxycodone [From Percocet] AdvReac Nausea Verified 06/04/18 18:17 All Systems Review: The remainder of the systems were reviewed and are negative - Constitutional Constitutional: no chills, no fatigue, no fever(s), no weakness - Cardiovascular Cardiovascular: dyspnea at rest, dyspnea on exertion, orthopnea, no chest pain at rest, no chest pain with exertion, no palpitations - Respiratory Respiratory: dyspnea - Gastrointestinal Gastrointestinal: no abdominal pain, no diarrhea, no dysphagia - Musculoskeletal Musculoskeletal: no myalgias - Integumentary Integumentary: other (no edema), no erythema, no rash - Neurological Neurological: focal weakness, no numbness - Psychiatric Psychiatric: no anxiety, no depression Physical Examination Vital Signs, Last 4 Hours Temp Pulse Resp BP Pulse Ox 06/05/18 07:57 98.5 F 79 14 179/98 90 General: Conversant, No Apparent Distress HEENT: Atraumatic, Normocephaly, Mucus Membranes Moist Neck: No JVD, Normal carotid pulses Cardiac: Reg Rate and Rhythm, Normal S1 and S2, No Murmur Lungs: No Wheeze, Rales, Rhonchi, Other (No breaths sounds in left lower lung lobe) Neuro: Alert and responsive, No focal deficits noted Abdomen: Soft, Non-Tender Skin: No rashes noted on visualized skin Musculoskeletal: No Chest Wall Tenderness Extremities: No Cyanosis, No Edema, Normal Pulses Results 06/05/18 00:25 06/05/18 00:25 Lab Results 06/04/18 06/04/18 06/04/18 18:25 18:25 18:25 WBC 8.4 Hgb 11.4 L Hct 37.9 Plt Count 255 INR 1.2 APTT 33.9 Sodium 139 Potassium 4.3 Chloride 107 Carbon Dioxide 24 BUN 26 H Creatinine 1.29 Glucose 157 H Calcium 9.3 Magnesium Total Bilirubin 0.6 AST 6 L ALT < 3 L Alkaline Phosphatase 138 H Troponin I 0.05 H* B-Natriuretic Peptide 06/04/18 06/05/18 06/05/18 18:25 00:25 00:25 WBC 9.3 Hgb 11.4 L Hct 37.3 L Plt Count 255 INR APTT Sodium 138 Potassium 4.7 Chloride 102 Carbon Dioxide 26 BUN 26 H Creatinine 1.33 H Glucose 165 H Calcium 9.5 Magnesium 2.2 Total Bilirubin AST ALT Alkaline Phosphatase Troponin I B-Natriuretic Peptide 4646 H 06/05/18 06/05/18 00:25 07:25 WBC Hgb Hct Plt Count INR APTT Sodium Potassium Chloride Carbon Dioxide BUN Creatinine Glucose Calcium Magnesium Total Bilirubin AST ALT Alkaline Phosphatase Troponin I 0.04 H* 0.09 H* B-Natriuretic Peptide Consult Discharge Plan - Plan Referrals: Marcelo Caldwell MD [Primary Care Provider] -
--- NOTE | 2018-06-05 12:05 | Event Note ---
Date of Encounter: 06/05/18 Time of Encounter: 09:45 H&P reviewed. Patient with history of squamous cell carcinoma of the left lung status post radiotherapy, COPD on nocturnal oxygen, heart failure with reduced EF, CKD, is admitted for hypoxic respiratory failure secondary to left pleural effusion. Was recently on abx as outpatient for bronchitis/PNA. Known systolic dysfunction (gated EF 35% on stress 12/2017, 45% on Echo 10/2017) but not on diuretics at home. Will empirically cover with Lopez/azithromycin, continue diuretics as well as steroids with bronchodilators, and await for pulm eval for possible thoracentesis. Repeat Echo. Appreciate cardiology and pulmonary input.
[2018-06-05] MEDS ORDERED: *HR* Labetalol 20 MG/4 ML SYRINGE IVP PRN (12:07)
[2018-06-05] MEDS: Spironolactone 25 MG TABLET PO SCH (12:37)
--- NOTE | 2018-06-05 15:17 | Electrocardiograph Report ---
[place] [id number] Test Date: 2018-06-04 Pat Name: Ezekiel Laughlin Department: EXAM7 Room: 2NE25 Gender: M [employer]: : [id number] Requested By: Rob Sommers Order Number: [id number] Reading MD: Tiffany Lechuga Measurements Intervals [place] Rate: 61 P: 12 MI: 56 QRS: -69 QRSD: 174 T: 114 QT: 532 QTc: 536 Interpretive Statements Sinus rhythm Short MI interval Probable left atrial enlargement LBBB Electronically Signed On 06-05-2018 15:16:31 EST by Tiffany Lechuga
[2018-06-05] MEDS: Ipratropium/Albuterol Neb 3 ML IH SCH ×3 (15:59→23:18)
[2018-06-05] MEDS: Budesonide/Formoterol 160/4.5 1 PUFF INH IH SCH (19:58)
[2018-06-05] MEDS ORDERED: Aspirin Enteric Coated 325 MG Tablet PO ONE (21:21)
[2018-06-06 00:45] LABS: Basophils % 0.1 %; Hematocrit 35.5 % (37.5-50.1); Hemoglobin 11.2 g/dL (12.9-16.9); Immature Granulocytes % 0.8 % (0-4); Lymphocytes # 0.4 K/mcL (0.6-4.6); Lymphocytes % 2.5 %; Mean Corpuscular HGB Conc 31.5 g/dL (31.6-35.5); Mean Corpuscular Hemoglobin 26.7 pg (28.0-33.3); Mean Corpuscular Volume 84.7 fL (83.0-100.0); Mean Platelet Volume 9.6 fL (9.4-12.4); Monocytes # 0.3 K/mcL (0.0-1.3); Monocytes % 1.9 %; Platelet Count 286 K/mcL (140-400); Red Blood Count 4.19 M/mcL (4.19-5.50); Red Cell Distribution Width 16.8 % (11.5-14.5); Segmented Neutrophils % 94.7 %
[2018-06-06 00:46] LABS: Neutrophils # 14.1 K/mcL (1.6-8.9)
[2018-06-06 01:02] LABS: Calcium 9.2 mg/dL (8.6-10.3); Magnesium 2.2 mg/dL (1.6-2.6); Potassium 4.2 mEq/L (3.5-5.1)
[2018-06-06] MEDS: Ipratropium/Albuterol Neb 3 ML IH SCH ×6 (04:30→23:24)
[2018-06-06] MEDS: Azithromycin 500 MG in D5% in Water 250 ML IVPB SCH (05:39)
[2018-06-06] MEDS: MethylPREDNISolone 40 MG/ML VIAL IVP SCH ×2 (05:39→17:47)
[2018-06-06] MEDS: Budesonide/Formoterol 160/4.5 1 PUFF INH IH SCH ×2 (07:32→19:45)
[2018-06-06] MEDS: Spironolactone 25 MG TABLET PO SCH (08:07)
[2018-06-06] MEDS: Carbidopa/Levodopa ER 50/200 TABLET PO SCH ×2 (08:08→21:43)
[2018-06-06] MEDS: Gabapentin 300 MG CAPSULE PO SCH ×4 (08:08→21:41)
--- NOTE | 2018-06-06 10:10 | Cardiology Progress Note ---
Date of Encounter: 06/06/18 Time of Encounter: 09:00 Assessment and Plan (1) CHF (congestive heart failure) Current Visit: Yes Status: Chronic History of systolic dysfunction. His nuclear stress test was in December and showed EF of 35% and recent echo from yesterday shows EF o 40% with global LV dysfunction. He is not on any home diuretics. No crackles or edema appreciated. CT of the chest at presentation showed large left sided pleural effusion. He r ecently had a pneumonia and was treated outpatient with antibiotics. Shortness of breath has resolved today. The pleural effusion could be related to CHF exacerbation vs. pneumonia vs. malignancy given history of left lung lobe squamous cell carcinoma. -Recommend 40 mg PO lasix daily -Continue aldactone given his systolic heart dysfunction -Strict I/O -Continue diuresis, recommend thoracentesis to determine the cause of pleural effusion given history of lung cx Qualifiers: Heart failure type: systolic Heart failure chronicity: acute on chronic Qualified Code(s): I50.23 - Acute on chronic systolic (congestive) heart failure (2) Pleural effusion, left Current Visit: Yes Status: Acute Left pleural effusion at presentation. No crackles appreciated and no lower extremity edema. Because it is localized to one lung field it can be secondary to pneumonia vs. malignancy vs. CHF exacerbation. 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 -Continue aldactone given his systolic heart dysfunction -Strict I/O -Recommend thoracentesis to determine the cause of pleural effusion (3) CAD (coronary artery disease) Current Visit: Yes Status: Chronic History of CAD. S/p stents in 2016 and pacemaker placement in 2016. Troponin mildly elevated at presentation in setting of pleural effusion. Not complaining of chest pain. Continue home metoprolol. Continue home atorvastatin. Qualifiers: Coronary Disease-Associated Artery/Lesion type: unspecified vessel or lesion type Associated angina: without angina Qualified Code(s): I25.10 - Atherosclerotic heart disease of [place] coronary artery without angina pectoris Discussion w patient/family: The assessment and plan as outlined above was discussed with the patient and/or family members who expressed understanding and agreement. All questions were answered. Thank you for involving us in the care of your patient. Please call with any questions. Subjective Interval history: Mr. Laughlin was seen at bedside this morning. His vitals have remained stable o vernight. He had new fluid balance of 1200 yesterday. He noted his shortness of breath has resolved. He is no longer having dyspnea. He is having good urinary output. He denies chest pain, fever, chills, nausea or emesis. Objective Vital Signs, Last 4 Hours Pulse Resp BP Pulse Ox 06/06/18 07:43 67 16 138/75 98 06/06/18 07:32 18 97 General: Conversant, No Apparent Distress HEENT: Atraumatic, Normocephaly, Mucus Membranes Moist Neck: No JVD, Normal carotid pulses Cardiac: Reg Rate and Rhythm, Normal S1 and S2, No Murmur Lungs: Normal Breath Sounds, No Wheeze, Rales, Rhonchi Neuro: Alert and responsive, No focal deficits noted Abdomen: Soft, Non-Tender Skin: No rashes noted on visualized skin Musculoskeletal: No Chest Wall Tenderness Extremities: No Cyanosis, No Edema, Normal Pulses Results 06/06/18 00:33 06/06/18 00:33 Lab Results 06/05/18 06/05/18 06/06/18 13:20 19:06 00:33 WBC 14.9 H D Hgb 11.2 L Hct 35.5 L Plt Count 286 Sodium Potassium Chloride Carbon Dioxide BUN Creatinine Glucose Calcium Magnesium Troponin I 0.17 H* 0.21 H* 06/06/18 06/06/18 00:33 00:33 WBC Hgb Hct Plt Count Sodium 137 Potassium 4.2 Chloride 103 Carbon Dioxide 23 BUN 41 H Creatinine 1.73 H Glucose 158 H Calcium 9.2 Magnesium 2.2 Troponin I 0.27 H* Consult Discharge Plan - Plan Referrals: Lidya Oliveira [employer] [Advanced Practice Nurse] - 06/11/18 9:00 am
--- NOTE | 2018-06-06 10:50 | Discharge Summary ---
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 No PE, elevated troponin was attributed to demand ischemia in the setting of respiratory failure per cardiology. Echo did not show any significant changes from 10/2017. He did have more focal airspace consolidation on CT but was recently treated for CAP as outpatient and pulmonary did not feel that further abx was necessary, especially as he rapidly improved with IV diuretics. Aldactone was initially added per cardiology as well but given slightly elevated Cr after diuretics, it will remain on hold with possibility to resume as outpatient. Will follow up with repeat BMP in 3 days and consider reinitiation of aldactone at the time. He will follow up with cardiology for consideration for ICD as well. Orders not resulted at time of discharge: Pending orders 06/04/18 18:26 Culture,Blood [BC] Stat 06/05/18 01:19 Legionella Antigen [RM] Routine S. Pneumoniae Antigen [RM] Routine Date of Encounter: 06/06/18 Time of Encounter: 08:00 - Discharge Diagnosis (1) HTN (hypertension) Priority: Secondary Status: Acute Qualifiers: Hypertension type: essential hypertension Qualified Code(s): I10 - Essential (primary) hypertension (2) CAD (coronary artery disease) Priority: Secondary Status: Acute Qualifiers: Coronary Disease-Associated Artery/Lesion type: unspecified vessel or lesion type Associated angina: with unspecified angina Qualified Code(s): I25.119 - Atherosclerotic heart disease of [place] coronary artery with unspecified angina pectoris (3) Non-small cell carcinoma of left lung Priority: Secondary Status: Chronic (4) COPD (chronic obstructive pulmonary disease) Priority: Secondary Status: Acute Qualifiers: COPD type: emphysema Emphysema type: centrilobular Qualified Code(s): J43.2 - Centrilobular emphysema (5) Acute and chronic respiratory failure with hypoxia Priority: Primary Status: Acute (6) Pleural effusion, left Priority: Secondary Status: Acute (7) Congestive heart failure (CHF) Priority: Secondary Status: Suspected Qualifiers: Heart failure type: unspecified Heart failure chronicity: acute on chronic Qualified Code(s): I50.9 - Heart failure, unspecified (8) Elevated troponin Priority: Secondary Status: Acute (9) DVT prophylaxis Priority: Secondary Status: Acute (10) Community acquired pneumonia Priority: Secondary Status: Acute Qualifiers: Laterality: left Lung location: unspecified part of lung Qualified Code(s): J18.9 - Pneumonia, unspecified organism Hospital course: Mr. 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 No PE, elevated troponin was attributed to demand ischemia in the setting of respiratory failure per cardiology. Echo did not show any significant changes from 10/2017. He did have more focal airspace consolidation on CT but was recently treated for CAP as outpatient and pulmonary did not feel that further abx was necessary, especially as he rapidly improved with IV diuretics. Aldact one was initially added per cardiology as well but given slightly elevated Cr after diuretics, it will remain on hold with possibility to resume as outpatient. Will follow up with repeat BMP in 3 days and consider reinitiation of aldactone at the time. He will follow up with cardiology for consideration for ICD as well. Discharge discussed with: patient, nurse, automobile sales consultant - Time Spent with Patient Total time spent providing and/or coordinating discharge services: 35 mins - Discharge Medications Prescriptions: Azithromycin [Zithromax] 250 mg PO DAILY #3 tablet Furosemide [Lasix] 40 mg PO DAILY #30 tablet predniSONE [PredniSONE] 40 mg PO DAILY 6 Days #9 tablet Home Medications: Gabapentin [Gralise] 600 mg PO QID 11/06/15 [History] Tamsulosin [Flomax] 0.8 mg PO HS 11/06/15 [History] Albuterol Sulfate [Albuterol Inhaler] 2 puff IH Q4H PRN 11/07/15 [History] Carbidopa/Levodopa ER 50/200 [Sinemet ER 50-200 Tab] 1 tab PO BID 11/07/15 [History] Fluticasone/Vilanterol [Breo Ellipta 200-25 Mcg INH] 1 puff IH DAILY 11/07/15 [History] Nitroglycerin [Nitrostat] 0.4 mg SL AD PRN 03/14/16 [History] Ropinirole HCl [Requip] 4 mg PO HS 03/14/16 [History] Metoprolol [Lopressor] 25 mg PO BID 06/27/16 [History] Oxygen 2 each .ROUTE AD 07/18/16 [History] Cyclobenzaprine [Flexeril] 5 mg PO TID #21 tablet 08/23/17 [Rx] Omeprazole [PriLOSEC] 20 mg PO DAILY #30 cap 08/30/17 [Rx] Amitriptyline [Elavil] 25 mg PO HS 06/06/18 [History] Azithromycin [Zithromax] 250 mg PO DAILY #3 tablet 06/06/18 [Rx] Clopidogrel [Plavix] 75 mg PO DAILY 06/06/18 [History] Finasteride [Proscar] 5 mg PO DAILY 06/06/18 [History] Furosemide [Lasix] 40 mg PO DAILY #30 tablet 06/06/18 [Rx] Losartan Potassium 100 mg PO DAILY 06/06/18 [History] Pravastatin Sodium [Pravachol] 40 mg PO HS 06/06/18 [History] clonazePAM [Clonazepam] 0.5 mg PO DAILY PRN 06/06/18 [History] predniSONE [PredniSONE] 40 mg PO DAILY 6 Days #9 tablet 06/06/18 [Rx] Allergies/Adverse Reactions: Allergy/AdvReac Type Severity Reaction Status Date / Time oxycodone [From Percocet] AdvReac Nausea Verified 06/04/18 18:17 Date of admission: 06/05/18 10:49 Primary care physician: Marcelo Caldwell MD Consults: 06/05/18 00:43 Consult to Cardiology [CONS] Routine Comment: Consulting Provider: Cardiology [place] Reason for Consult: Onset CHF with SOB and large left pleural effusion. Known CAD and AAA s/p repair Call Completed: No Consult to Pulmonology [CONS] Routine Consulting Provider: [facility] [place] Reason for Consult: Large left pleural effusion, possible thoracentesis. Squamous cell cacinoma of lung s/p SBRT in remission Call Completed: No 06/06/18 08:09 Consult to Nurse Navigator [CONS] Routine Comment: COPD and Pneumonia - Constitutional Vitals: Temp Pulse Resp BP Pulse Ox 97.8 F 67 16 138/75 98 06/06/18 05:40 06/06/18 07:43 06/06/18 07:43 06/06/18 07:43 06/06/18 07:43 Exam: General: Patient ambulating in room without difficulty, no apparent distress Cardiovascular: Regular rate and rhythm, no murmur. No LE edema Respiratory: Diminished left lower lung field with crackles, improved since admission. No more wheezing Abdomen: Soft, nontender, nondistended, positive bowel sounds Extremities: No swelling or edema, peripheral pulses intact Neuro: Alert and oriented to person, place, and situation. No focal deficits - Patient Status Disposition: Home, Self-Care Condition: Fair Functional capacity at discharge: independent ambulation Overall status at discharge: patient is progressing back to baseline - Discharge Instructions Instructions: Acute Respiratory Distress Syndrome (DC), Chronic Obstructive Pulmonary Disease (DC), Heart Failure (DC) Follow Up With: Lidya Oliveira CNP [Advanced Practice Nurse] - 06/11/18 9:00 am - Diet and Activity Activity: resume usual activities as tolerated Diet: low salt diet
[2018-06-06 13:05] LABS: Potassium 4.2 mEq/L (3.5-5.1)
[2018-06-06 13:06] LABS: Calcium 9.3 mg/dL (8.6-10.3)
[2018-06-06] MEDS ORDERED: clonazePAM 0.5 MG TABLET PO PRN (14:22)
[2018-06-06] MEDS ORDERED: 0.9 % Sodium Chloride 1,000 ML IVC SCH (14:30)
--- NOTE | 2018-06-06 14:41 | Event Note ---
Date of Encounter: 06/06/18 Time of Encounter: 14:15 Noted that he had repeat BMP ordered by cardiology which shows increasing Cr to 2.03 from 1.73 this morning. Will hold lasix for tomorrow morning, also hold off on losartan and aldactone. Would likely be discharged home on lasix alone rather than aldactone at the same time. 1 bag of NS at 50ml/hr tonight and monitor Cr. Cancel d/c order.
[2018-06-06 14:49] LABS: Troponin I 0.18 ng/mL (< 0.04)
[2018-06-06] MEDS: rOPINIRole 3 MG, rOPINIRole 1 MG PO SCH (21:42)
[2018-06-07] MEDS: Ipratropium/Albuterol Neb 3 ML IH SCH ×3 (04:01→12:05)
[2018-06-07] MEDS: MethylPREDNISolone 40 MG/ML VIAL IVP SCH (05:23)
[2018-06-07] MEDS: Azithromycin 500 MG in D5% in Water 250 ML IVPB SCH (05:23)
[2018-06-07 06:23] LABS: Calcium 8.8 mg/dL (8.6-10.3); Potassium 4.3 mEq/L (3.5-5.1)
[2018-06-07 07:39] VITALS: BP 158/88
[2018-06-07] MEDS: Budesonide/Formoterol 160/4.5 1 PUFF INH IH SCH (07:56)
[2018-06-07] MEDS ORDERED: Furosemide 40 MG TABLET PO SCH ×2 (09:00)
[2018-06-07] MEDS ORDERED: Finasteride 5 MG TABLET PO SCH (09:00)
[2018-06-07] MEDS: Gabapentin 300 MG CAPSULE PO SCH (09:45)
[2018-06-07] MEDS: Carbidopa/Levodopa ER 50/200 TABLET PO SCH (09:46)
--- NOTE | 2018-06-07 10:21 | Internal Med Progress Note ---
Hospitalist Progress Note - Encounter Date of Encounter: 06/07/18 Time of Encounter: 08:15 - Subjective Interval History: No acute events overnight. Discharge was held as his creatinine increased to 2 in the afternoon. STarted on NS at 50ml/hr with improvement in his Cr to 1.7. Denies SOB, palpitation, cough, or LE swelling. - Exam Vitals: Temp Pulse Resp BP Pulse Ox 97.7 F 79 14 158/88 96 06/07/18 07:37 06/07/18 07:37 06/07/18 07:37 06/07/18 07:37 06/07/18 07:37 Exam: General: Patient ambulating in room without difficulty, no apparent distress Cardiovascular: Regular rate and rhythm, no murmur. No LE edema Respiratory: Diminished left lower lung field with crackles, improved since admission. No more wheezing Abdomen: Soft, nontender, nondistended, positive bowel sounds Extremities: No swelling or edema, peripheral pulses intact Neuro: Alert and oriented to person, place, and situation. No focal deficits - Assessment and Plan (1) HTN (hypertension) Current Visit: No Status: Acute (2) CAD (coronary artery disease) Current Visit: Yes Status: Acute (3) Non-small cell carcinoma of left lung Current Visit: No Status: Chronic (4) COPD (chronic obstructive pulmonary disease) Current Visit: Yes Status: Acute (5) Acute and chronic respiratory failure with hypoxia Current Visit: Yes Status: Acute (6) Pleural effusion, left Current Visit: Yes Status: Acute (7) Congestive heart failure (CHF) Current Visit: Yes Status: Suspected (8) Elevated troponin Current Visit: Yes Status: Acute (9) DVT prophylaxis Current Visit: Yes Status: Acute (10) Community acquired pneumonia Current Visit: Yes Status: Acute - Summary of Assessment and Plan Summary of Assessment and Plan: Patient with 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 No PE, elevated troponin was attributed to demand ischemia in the setting of respiratory failure per cardiology. Echo did not show any significant changes from 10/2017. He did have more focal airspace consolidation on CT but was recently treated for CAP as outpatient and pulmonary did not feel that further abx was necessary, especially as he rapidly improved with IV diuretics. Aldactone was initially added per cardiology as well but given elevated Cr after diuretics, it will remain on hold with intention to resume as outpatient. Will follow up with repeat BMP in 3 days and consider reinitiation of aldactone at the time. Hold lasix till BMP on Sunday and start at 20mg QD, unless he develops recurrent symptoms over the weekend. He will follow up with cardiology for consideration for ICD as well. - Time Spent with Patient Total time spent is greater than 50% in coordination of care (as documented) at patient's floor/unit and/or counseling patient: Plan of Care Discussed with: patient Internal Medicine: Result - Labs CBC & Chem 7: 06/06/18 00:33 06/07/18 05:11 Labs: BMP 06/06/18 06/07/18 12:26 05:11 Sodium 138 139 Potassium 4.2 4.3 Chloride 101 105 Carbon Dioxide 28 26 BUN 48 H 48 H Creatinine 2.03 H 1.73 H Glucose 200 H 157 H Calcium 9.3 8.8 Cardiac Enzymes 06/06/18 Range/Units 12:26 Troponin I 0.18 H* (< 0.04) ng/mL - ABG Interpretation ABG results: ABG ABG pH 7.41 pH Units (7.32-7.45) 06/04/18 22:22 ABG pCO2 36 mmHg (35-45) 06/04/18 22:22 ABG pO2 84 mmHg (85-104) L 06/04/18 22:22 ABG O2 Saturation 96 % (95-98) 06/04/18 22:22 PT/INR, D-dimer PT 13.5 Seconds (9.4-12.1) H 06/04/18 18:25 Consult Discharge Plan - Plan Instructions: Furosemide (By mouth), Prednisone (By mouth), Azithromycin (By mouth), Heart Failure (DC), Acute Respiratory Distress Syndrome (DC), Chronic Obstructive Pulmonary Disease (DC) Referrals: Lidya Oliveira CNP [Advanced Practice Nurse] - 06/11/18 9:00 am Prescriptions: Azithromycin [Zithromax] 250 mg PO DAILY #3 tablet Furosemide [Lasix] 20 mg PO DAILY #30 tablet Furosemide [Lasix] 40 mg PO DAILY #30 tablet predniSONE [PredniSONE] 40 mg PO DAILY 6 Days #9 tablet (1) HTN (hypertension) Qualifiers: Hypertension type: essential hypertension Qualified Code(s): I10 - Essential (primary) hypertension (2) CAD (coronary artery disease) Qualifiers: Coronary Disease-Associated Artery/Lesion type: unspecified vessel or lesion type Associated angina: with unspecified angina Qualified Code(s): I25.119 - Atherosclerotic heart disease of [place] coronary artery with unspecified angina pectoris (4) COPD (chronic obstructive pulmonary disease) Qualifiers: COPD type: emphysema Emphysema type: centrilobular Qualified Code(s): J43.2 - Centrilobular emphysema (7) Congestive heart failure (CHF) Qualifiers: Heart failure type: unspecified Heart failure chronicity: acute on chronic Qualified Code(s): I50.9 - Heart failure, unspecified (10) Community acquired pneumonia Qualifiers: Laterality: left Lung location: unspecified part of lung Qualified Code(s): J18.9 - Pneumonia, unspecified organism
--- NOTE | 2018-06-07 11:43 | Cardiology Progress Note ---
Date of Encounter: 06/07/18 Time of Encounter: 10:00 Assessment and Plan (1) CHF (congestive heart failure) Status: Chronic History of systolic dysfunction. His nuclear stress test was in December and showed EF of 35% and recent echo from this admission shows EF of 40% with global LV dysfunction. He was not on any home diuretics. CT of the chest at presentation showed large left sided pleural effusion. He recently had a pneumonia and was treated outpatient with antibiotics. Shortness of breath has resolved today. Chest xray today shows improvement in pleural effusion and his symptoms have improved. No orthopnea or shortness of breath this morning. -Recommend 40 mg PO lasix daily outpatient -Aldactone held due to worsening renal function -Pleural effusion looks improved in repeat chest xray but there is continued opacity in left lower lung lobe that may require workup outpatient given history of previous malignancy Qualifiers: Heart failure type: systolic Heart failure chronicity: acute on chronic Qualified Code(s): I50.23 - Acute on chronic systolic (congestive) heart failure (2) Pleural effusion, left Status: Acute Left pleural effusion at presentation, improved today with no further shortness of breath. No crackles appreciated and no lower extremity edema. Because it is localized to one lung field it can be secondary to pneumonia vs. malignancy vs. CHF exacerbation. 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 -Continue lasix outpatient (3) CAD (coronary artery disease) Status: Chronic History of CAD. S/p stents in 2016 and pacemaker placement in 2016. Troponin mildly elevated at presentation in setting of pleural effusion. Not complaining of chest pain. Continue home metoprolol. Continue home atorvastatin. Qualifiers: Coronary Disease-Associated Artery/Lesion type: unspecified vessel or lesion type Associated angina: without angina Qualified Code(s): I25.10 - Atherosclerotic heart disease of [place] coronary artery without angina pectoris Discussion w patient/family: The assessment and plan as outlined above was discussed with the patient and/or family members who expressed understanding and agreement. All questions were answered. Thank you for involving us in the care of your patient. Please call with any questions. Subjective Interval history: Mr. Laughlin was seen at bedside this morning. His vitals have remained stable overnight. He noted his shortness of breath has resolved. He is no longer having dyspnea. He is having good urinary output. He denies chest pain, fever, chills, nausea or emesis. Objective Vital Signs, Last 4 Hours Pulse Ox 06/07/18 11:24 95 General: Conversant, No Apparent Distress HEENT: Atraumatic, Normocephaly, Mucus Membranes Moist Neck: No JVD, Normal carotid pulses Cardiac: Reg Rate and Rhythm, Normal S1 and S2, No Murmur Lungs: Normal Breath Sounds, No Wheeze, Rales, Rhonchi Neuro: Alert and responsive, No focal deficits noted Abdomen: Soft, Non-Tender Skin: No rashes noted on visualized skin Musculoskeletal: No Chest Wall Tenderness Extremities: No Cyanosis, No Edema, Normal Pulses Results 06/06/18 00:33 06/07/18 05:11 Lab Results 06/06/18 06/07/18 12:26 05:11 Sodium 138 139 Potassium 4.2 4.3 Chloride 101 105 Carbon Dioxide 28 26 BUN 48 H 48 H Creatinine 2.03 H 1.73 H Glucose 200 H 157 H Calcium 9.3 8.8 Troponin I 0.18 H* Consult Discharge Plan - Plan Instructions: Furosemide (By mouth), Prednisone (By mouth), Azithromycin (By mouth), Heart Failure (DC), Acute Respiratory Distress Syndrome (DC), Chronic Obstructive Pulmonary Disease (DC) Referrals: Lidya Oliveira CNP [Advanced Practice Nurse] - 06/11/18 9:00 am Prescriptions: Azithromycin [Zithromax] 250 mg PO DAILY #3 tablet Furosemide [Lasix] 20 mg PO DAILY #30 tablet Furosemide [Lasix] 40 mg PO DAILY #30 tablet predniSONE [PredniSONE] 40 mg PO DAILY 6 Days #9 tablet
== END 2018-06-07 12:52 | disposition home or self-care (01) | DRG 189 ==
LOC: 2NENU 17:58 → EMEROOARM 17:58 → SUATTDRO 21:08 → 2NENU 22:01
PROVIDERS: ADMIT Internal Medicine; ATTEND Internal Medicine

== ENCOUNTER 2019-05-12 12:50 | Observation (INO) ==
[2019-05-12] MEDS ORDERED: Isovue-370 500 ML BOTTLE IVP ONE (13:34)
[2019-05-12 13:47] LABS: Basophils # 0.1 K/mcL (0.0-0.2); Basophils % 0.8 %; Eosinophils # 0.1 K/mcL (0.0-0.6); Eosinophils % 2.2 %; Hemoglobin 11.9 g/dL (12.9-16.9); Immature Granulocytes % 0.5 % (0-4); Mean Corpuscular HGB Conc 30.5 g/dL (31.6-35.5); Mean Corpuscular Hemoglobin 29.1 pg (28.0-33.3); Mean Corpuscular Volume 95.4 fL (83.0-100.0); Mean Platelet Volume 10.5 fL (9.4-12.4); Monocytes # 0.6 K/mcL (0.0-1.3); Monocytes % 9.4 %; Neutrophils # 4.5 K/mcL (1.6-8.9); Platelet Count 179 K/mcL (140-400); Red Blood Count 4.09 M/mcL (4.19-5.50); Red Cell Distribution Width 16.4 % (11.5-14.5); Segmented Neutrophils % 71.1 %; White Blood Count 6.4 K/mcL (4.3-11.1)
[2019-05-12 14:07] LABS: Troponin I 0.04 ng/mL (< 0.04)
[2019-05-12] MEDS ORDERED: Aspirin 81 MG TAB.CHEW PO ONE (14:17)
[2019-05-12 14:18] LABS: Calcium 9.3 mg/dL (8.6-10.3); Potassium 4.2 mEq/L (3.5-5.1)
[2019-05-12] MEDS ORDERED: Furosemide 40 MG/4 ML VIAL IVP ONE (15:46)
[2019-05-12] MEDS ORDERED: Naloxone 0.4 MG/ML INJ IVP PRN (16:25)
[2019-05-12] MEDS ORDERED: clonazePAM 0.5 MG TABLET PO PRN (16:36)
[2019-05-12] MEDS ORDERED: amLODIPine 5 MG TABLET PO SCH (17:27)
[2019-05-12] MEDS: Gabapentin 300 MG CAPSULE PO SCH ×2 (18:43→20:50)
[2019-05-12] MEDS: Budesonide/Formoterol 160/4.5 1 PUFF INH IH SCH (19:54)
[2019-05-12] MEDS: Ipratropium/Albuterol Neb 3 ML IH SCH ×2 (19:55→23:21)
[2019-05-12] MEDS: predniSONE 20 MG TABLET PO SCH (20:50)
[2019-05-12] MEDS: Carbidopa/Levodopa ER 50/200 TABLET PO SCH (20:50)
[2019-05-12] MEDS: Furosemide 40 MG/4 ML VIAL IVP SCH (20:51)
[2019-05-12] MEDS ORDERED: Furosemide 40 MG/4 ML VIAL IVP SCH (21:00)
[2019-05-12] MEDS ORDERED: rOPINIRole 1 MG TABLET PO SCH (21:00)
[2019-05-13] MEDS: Ipratropium/Albuterol Neb 3 ML IH SCH ×3 (03:16→11:30)
[2019-05-13 05:08] LABS: Basophils % 0.7 %; Eosinophils % 0.3 %; Hematocrit 39.2 % (37.5-50.1); Immature Granulocytes % 0.8 % (0-4); Lymphocytes # 0.4 K/mcL (0.6-4.6); Mean Corpuscular HGB Conc 30.6 g/dL (31.6-35.5); Mean Corpuscular Volume 91.6 fL (83.0-100.0); Mean Platelet Volume 10.3 fL (9.4-12.4); Monocytes # 0.1 K/mcL (0.0-1.3); Monocytes % 1.5 %; Neutrophils # 5.5 K/mcL (1.6-8.9); Platelet Count 173 K/mcL (140-400); Red Blood Count 4.28 M/mcL (4.19-5.50); Red Cell Distribution Width 16.4 % (11.5-14.5); Segmented Neutrophils % 90.7 %
[2019-05-13 05:30] LABS: Calcium 9.4 mg/dL (8.6-10.3); Phosphorous 4.3 mg/dL (2.7-4.5); Potassium 4.3 mEq/L (3.5-5.1)
[2019-05-13 05:38] LABS: Troponin I 0.04 ng/mL (< 0.04)
[2019-05-13] MEDS: Budesonide/Formoterol 160/4.5 1 PUFF INH IH SCH (07:29)
[2019-05-13] MEDS ORDERED: carvediloL 6.25 MG TABLET PO SCH (08:30)
[2019-05-13] MEDS: predniSONE 20 MG TABLET PO SCH (08:32)
[2019-05-13] MEDS: Furosemide 40 MG/4 ML VIAL IVP SCH (08:33)
[2019-05-13] MEDS: Carbidopa/Levodopa ER 50/200 TABLET PO SCH (08:33)
[2019-05-13] MEDS ORDERED: Aspirin 81 MG TAB.CHEW PO SCH (09:00)
[2019-05-13] MEDS ORDERED: Finasteride 5 MG TABLET PO SCH (09:00)
[2019-05-13] MEDS ORDERED: Gabapentin 300 MG CAPSULE PO SCH (09:00)
[2019-05-13] MEDS ORDERED: Aspirin Enteric Coated 81 MG Tablet PO SCH (09:00)
[2019-05-13] MEDS ORDERED: amLODIPine 5 MG TABLET PO SCH (09:00)
[2019-05-13 11:11] VITALS: BP 137/54
== END 2019-05-13 12:32 | disposition home or self-care (01) ==
LOC: EMEROOARM 12:50 → 3BNU 12:50
PROVIDERS: ADMIT Family Medicine; ATTEND Family Medicine

== ENCOUNTER 2020-01-11 02:35 | Inpatient (IN) ==
[2020-01-11] MEDS ORDERED: Acetaminophen 325 MG TABLET PO PRN (04:52)
[2020-01-11] MEDS ORDERED: Naloxone 0.4 MG/ML INJ IVP PRN (04:52)
[2020-01-11 05:55] LABS: Adenovirus Not Detected (Not Detect); Bordetella Pertussis Not Detected (Not Detect); Chlamydophila pneumoniae Not Detected (Not Detect); Coronavirus 229E Not Detected (Not Detect); Coronavirus HKU1 Not Detected (Not Detect); Coronavirus NL63 Not Detected (Not Detect); Coronavirus OC43 Not Detected (Not Detect); Human Metapneumovirus Not Detected (Not Detect); Human Rhinovirus/Enterovirus Not Detected (Not Detect); Influenza A Subtype 2009 H1 Not Detected (Not Detect); Influenza B Not Detected (Not Detect); Mycoplasma pneumoniae Not Detected (Not Detect); Parainfluenza Virus 1 Not Detected (Not Detect); Parainfluenza Virus 2 Not Detected (Not Detect); Parainfluenza Virus 3 Not Detected (Not Detect); Parainfluenza Virus 4 Not Detected (Not Detect); Respiratory Syncytial Virus Not Detected (Not Detect); SARS-CoV-2 Not Detected (Not Detect)
[2020-01-11] MEDS ORDERED: Perflutren Lipid Microsphere 1.3 ML in 0.9 % Sodium Chloride 8.7 ML IVP PRN (06:50)
[2020-01-11] MEDS: Ipratropium/Albuterol Neb 3 ML IH SCH ×4 (06:53→21:34)
[2020-01-11] MEDS: *HR* Heparin 5,000 UNIT/ML VIAL SQ SCH ×3 (06:53→20:02)
[2020-01-11] MEDS: cefTRIAXone 2,000 MG in Water for inj. (sterile) 20 ML IVP SCH (06:54)
[2020-01-11] MEDS: MethylPREDNISolone 40 MG/ML VIAL IVP SCH ×2 (06:54→16:03)
[2020-01-11] MEDS: carvediloL 25 MG TABLET PO SCH ×2 (07:31→16:03)
[2020-01-11] MEDS: Sacubitril/Valsartan 24/26 MG 1 TABLET PO SCH ×2 (07:32→20:01)
[2020-01-11] MEDS: Furosemide 40 MG/4 ML VIAL IVP SCH ×2 (07:32→20:01)
[2020-01-11] MEDS: Carbidopa/Levodopa ER 50/200 TABLET PO SCH ×2 (07:32→20:01)
[2020-01-11] MEDS: Aspirin Enteric Coated 81 MG Tablet PO SCH (07:32)
[2020-01-11] MEDS: amLODIPine 5 MG TABLET PO SCH (08:30)
[2020-01-11] MEDS ORDERED: Azithromycin 250 MG TABLET PO SCH (09:00)
[2020-01-11] MEDS ORDERED: Furosemide 40 MG/4 ML VIAL IVP SCH (09:00)
[2020-01-11] MEDS: Budesonide/Formoterol 160/4.5 1 PUFF INH IH SCH ×2 (10:02→21:34)
[2020-01-11] MEDS: Nicotine 7 MG PATCH.TD24 TD SCH (12:41)
[2020-01-11 13:17] LABS: Calcium 9.4 mg/dL (8.6-10.3); Potassium 4.6 mEq/L (3.5-5.1)
[2020-01-12 02:20] LABS: Hemoglobin 10.6 g/dL (12.9-16.9); Mean Corpuscular HGB Conc 31.2 g/dL (31.6-35.5); Mean Corpuscular Hemoglobin 29.2 pg (28.0-33.3); Mean Corpuscular Volume 93.7 fL (83.0-100.0); Mean Platelet Volume 11.8 fL (9.4-12.4); Platelet Count 152 K/mcL (140-400); Red Blood Count 3.63 M/mcL (4.19-5.50); White Blood Count 10.3 K/mcL (4.3-11.1)
[2020-01-12 02:43] LABS: Calcium 8.9 mg/dL (8.6-10.3); Potassium 4.1 mEq/L (3.5-5.1)
[2020-01-12] MEDS: Ipratropium/Albuterol Neb 3 ML IH SCH ×4 (03:36→22:22)
[2020-01-12] MEDS: cefTRIAXone 2,000 MG in Water for inj. (sterile) 20 ML IVP SCH (05:34)
[2020-01-12] MEDS: *HR* Heparin 5,000 UNIT/ML VIAL SQ SCH ×3 (05:35→21:06)
[2020-01-12] MEDS: MethylPREDNISolone 40 MG/ML VIAL IVP SCH ×2 (05:35→17:33)
[2020-01-12] MEDS ORDERED: Nitroglycerin 0.4 MG TAB.SUBL SL PRN (07:38)
[2020-01-12] MEDS: Sacubitril/Valsartan 24/26 MG 1 TABLET PO SCH ×2 (08:13→20:17)
[2020-01-12] MEDS: Nicotine 7 MG PATCH.TD24 TD SCH (08:13)
[2020-01-12] MEDS: amLODIPine 5 MG TABLET PO SCH (08:13)
[2020-01-12] MEDS: Aspirin Enteric Coated 81 MG Tablet PO SCH (08:13)
[2020-01-12] MEDS: carvediloL 25 MG TABLET PO SCH ×2 (08:13→15:31)
[2020-01-12] MEDS: Carbidopa/Levodopa ER 50/200 TABLET PO SCH ×2 (08:13→20:18)
[2020-01-12] MEDS ORDERED: NON-FORMULARY MEDICATION 1 EACH EACH (Fluticasone/Vilanterol [Breo Ellipta 100-25 Mcg Inh] IH SCH (09:00)
[2020-01-12] MEDS ORDERED: Azithromycin 250 MG TABLET PO SCH (09:00)
[2020-01-12] MEDS: Budesonide/Formoterol 160/4.5 1 PUFF INH IH SCH ×2 (10:57→22:23)
[2020-01-12] MEDS: Gabapentin 300 MG CAPSULE PO SCH ×3 (12:27→20:18)
[2020-01-12] MEDS: calcitrioL 0.25 MCG CAPSULE PO SCH (12:27)
[2020-01-12] MEDS: Finasteride 5 MG TABLET PO SCH (12:27)
[2020-01-12] MEDS: hydrALAZINE 25 MG TABLET PO SCH ×2 (15:37→20:17)
[2020-01-12] MEDS: Nicotine 14 MG PATCH.TD24 TD SCH ×2 (18:13→18:20)
[2020-01-13 03:29] LABS: Basophils % 0.1 %; Hematocrit 33.9 % (37.5-50.1); Hemoglobin 10.7 g/dL (12.9-16.9); Immature Granulocytes % 0.9 % (0-4); Lymphocytes # 0.4 K/mcL (0.6-4.6); Lymphocytes % 3.4 %; Mean Corpuscular HGB Conc 31.6 g/dL (31.6-35.5); Mean Corpuscular Hemoglobin 29.7 pg (28.0-33.3); Mean Corpuscular Volume 94.2 fL (83.0-100.0); Mean Platelet Volume 11.5 fL (9.4-12.4); Monocytes # 0.3 K/mcL (0.0-1.3); Monocytes % 2.7 %; Neutrophils # 11.2 K/mcL (1.6-8.9); Platelet Count 182 K/mcL (140-400); Red Cell Distribution Width 16.6 % (11.5-14.5); Segmented Neutrophils % 92.9 %; White Blood Count 12.1 K/mcL (4.3-11.1)
[2020-01-13] MEDS: Ipratropium/Albuterol Neb 3 ML IH SCH ×4 (03:50→21:56)
[2020-01-13 03:52] LABS: Potassium 3.9 mEq/L (3.5-5.1)
[2020-01-13] MEDS: cefTRIAXone 2,000 MG in Water for inj. (sterile) 20 ML IVP SCH (05:34)
[2020-01-13] MEDS: *HR* Heparin 5,000 UNIT/ML VIAL SQ SCH (05:34)
[2020-01-13] MEDS: MethylPREDNISolone 40 MG/ML VIAL IVP SCH ×2 (05:35→18:04)
[2020-01-13] MEDS: Aspirin Enteric Coated 81 MG Tablet PO SCH (07:26)
[2020-01-13] MEDS: Gabapentin 300 MG CAPSULE PO SCH ×3 (07:26→21:27)
[2020-01-13] MEDS: hydrALAZINE 25 MG TABLET PO SCH ×3 (07:26→21:27)
[2020-01-13] MEDS: Carbidopa/Levodopa ER 50/200 TABLET PO SCH ×2 (07:26→21:27)
[2020-01-13] MEDS: Finasteride 5 MG TABLET PO SCH (07:27)
[2020-01-13] MEDS: carvediloL 25 MG TABLET PO SCH ×2 (07:27→15:26)
[2020-01-13] MEDS: amLODIPine 5 MG TABLET PO SCH (07:27)
[2020-01-13] MEDS: Nicotine 14 MG PATCH.TD24 TD SCH (07:27)
[2020-01-13] MEDS: Sacubitril/Valsartan 24/26 MG 1 TABLET PO SCH ×2 (07:27→21:27)
[2020-01-13] MEDS: Budesonide/Formoterol 160/4.5 1 PUFF INH IH SCH ×2 (10:31→21:56)
[2020-01-13] MEDS ORDERED: *HR* Heparin 5,000 UNIT/ML VIAL IVP ONE (12:11)
[2020-01-13] MEDS ORDERED: *HR* Heparin 5,000 UNIT/ML VIAL IVP PRN ×2 (12:11)
[2020-01-13] MEDS ORDERED: Heparin 25,000UNIT/250ML 1/2NS 25,000 UNIT/250 ML IV.SOLN IVC SCH (12:15)
[2020-01-13 13:13] LABS: Hematocrit 36.9 % (37.5-50.1); Hemoglobin 11.5 g/dL (12.9-16.9); Mean Corpuscular HGB Conc 31.2 g/dL (31.6-35.5); Mean Corpuscular Volume 92.9 fL (83.0-100.0); Mean Platelet Volume 11.2 fL (9.4-12.4); Platelet Count 203 K/mcL (140-400); Red Blood Count 3.97 M/mcL (4.19-5.50); Red Cell Distribution Width 16.6 % (11.5-14.5)
[2020-01-13] MEDS ORDERED: 0.9 % Sodium Chloride 1,000 ML IVC SCH (13:15)
[2020-01-13 13:16] LABS: Heparin anti-factor XA UFH < 0.04 IU/mL (0.30-0.70)
[2020-01-13 13:17] LABS: INR 1.1; Prothrombin Time 12.9 Seconds (9.4-12.1)
[2020-01-13] MEDS ORDERED: ISOVUE-370 200 ML INFUS..BTL ONE (13:39)
[2020-01-13] MEDS ORDERED: Nitroglycerin 1,000 MCG/10 ML VIAL IV ONE (13:39)
[2020-01-13] MEDS ORDERED: Heparin 1,000 UNITS/500 mL 500 ML ONE (13:39)
[2020-01-13] MEDS ORDERED: 0.9 % Sodium Chloride 2,000 ML ONE (13:39)
[2020-01-13] MEDS ORDERED: *HR* Heparin 10,000 UNIT/10 ML VIAL ONE (13:39)
[2020-01-13] MEDS ORDERED: *HR* FentaNYL (PF) 100 MCG/2 ML VIAL ONE (14:04)
[2020-01-13] MEDS ORDERED: *HR* Midazolam HCl 2 MG/2 ML VIAL ONE (14:04)
[2020-01-13] MEDS ORDERED: Sodium Bicarbonate 75 MEQ in 0.45 % Sodium Chloride 1,000 ML IVC SCH (18:00)
[2020-01-13] MEDS: Isosorbide MONOnitrate (24 HR) 30 MG TAB.ER.24H PO SCH (18:03)
[2020-01-14] MEDS: Ipratropium/Albuterol Neb 3 ML IH SCH ×3 (03:59→15:45)
[2020-01-14] MEDS: cefTRIAXone 2,000 MG in Water for inj. (sterile) 20 ML IVP SCH (05:02)
[2020-01-14] MEDS: MethylPREDNISolone 40 MG/ML VIAL IVP SCH (05:03)
[2020-01-14 06:59] LABS: Basophils % 0.1 %; Hematocrit 34.2 % (37.5-50.1); Hemoglobin 10.8 g/dL (12.9-16.9); Immature Granulocytes % 0.9 % (0-4); Lymphocytes # 0.4 K/mcL (0.6-4.6); Lymphocytes % 4.4 %; Mean Corpuscular HGB Conc 31.6 g/dL (31.6-35.5); Mean Corpuscular Hemoglobin 29.8 pg (28.0-33.3); Mean Corpuscular Volume 94.2 fL (83.0-100.0); Mean Platelet Volume 10.8 fL (9.4-12.4); Monocytes # 0.4 K/mcL (0.0-1.3); Monocytes % 3.6 %; Platelet Count 201 K/mcL (140-400); Red Blood Count 3.63 M/mcL (4.19-5.50); Red Cell Distribution Width 16.8 % (11.5-14.5); White Blood Count 9.9 K/mcL (4.3-11.1)
[2020-01-14 07:20] LABS: Calcium 8.7 mg/dL (8.6-10.3); Potassium 3.9 mEq/L (3.5-5.1)
[2020-01-14] MEDS ORDERED: Furosemide 40 MG TABLET PO SCH (09:00)
[2020-01-14] MEDS ORDERED: Furosemide 20 MG TABLET PO SCH ×2 (09:00→21:00)
[2020-01-14] MEDS: Sacubitril/Valsartan 24/26 MG 1 TABLET PO SCH (09:13)
[2020-01-14] MEDS: hydrALAZINE 25 MG TABLET PO SCH (09:13)
[2020-01-14] MEDS: carvediloL 25 MG TABLET PO SCH (09:13)
[2020-01-14] MEDS: Gabapentin 300 MG CAPSULE PO SCH (09:14)
[2020-01-14] MEDS: Isosorbide MONOnitrate (24 HR) 30 MG TAB.ER.24H PO SCH (09:14)
[2020-01-14] MEDS: Aspirin Enteric Coated 81 MG Tablet PO SCH (09:14)
[2020-01-14] MEDS: Carbidopa/Levodopa ER 50/200 TABLET PO SCH (09:14)
[2020-01-14] MEDS: Finasteride 5 MG TABLET PO SCH (09:14)
[2020-01-14] MEDS: Nicotine 14 MG PATCH.TD24 TD SCH (09:14)
[2020-01-14] MEDS: Budesonide/Formoterol 160/4.5 1 PUFF INH IH SCH (10:42)
[2020-01-14] MEDS: calcitrioL 0.25 MCG CAPSULE PO SCH (12:08)
[2020-01-14 14:06] VITALS: BP 146/84
== END 2020-01-14 17:10 | disposition home or self-care (01) | DRG 280 ==
LOC: 2NNU → CDU → SUATTDRO 11:59
PROVIDERS: ADMIT Internal Medicine; ATTEND Internal Medicine

== ENCOUNTER 2020-09-13 22:05 | Inpatient (IN) ==
[2020-09-14] MEDS ORDERED: *HR* HYDROcodone/Acet 5/325 mg TABLET PO PRN (03:14)
[2020-09-14] MEDS ORDERED: Ondansetron 4 MG/2 ML VIAL IVP PRN (03:14)
[2020-09-14] MEDS ORDERED: Melatonin 3 MG TABLET PO PRN (03:14)
[2020-09-14] MEDS ORDERED: Acetaminophen 325 MG TABLET PO PRN (03:14)
[2020-09-14] MEDS ORDERED: Naloxone 0.4 MG/ML INJ IVP PRN (03:14)
[2020-09-14] MEDS: Nicotine 21 MG PATCH.TD24 TD SCH (03:32)
[2020-09-14 05:36] LABS: Basophils % 0.2 %; Hematocrit 36.7 % (37.5-50.1); Hemoglobin 11.2 g/dL (12.9-16.9); Immature Granulocytes % 0.4 % (0-4); Lymphocytes # 0.4 K/mcL (0.6-4.6); Lymphocytes % 7.7 %; Mean Corpuscular HGB Conc 30.5 g/dL (31.6-35.5); Mean Corpuscular Hemoglobin 29.1 pg (28.0-33.3); Mean Corpuscular Volume 95.3 fL (83.0-100.0); Mean Platelet Volume 11.6 fL (9.4-12.4); Monocytes # 0.1 K/mcL (0.0-1.3); Monocytes % 2.1 %; Neutrophils # 4.8 K/mcL (1.6-8.9); Platelet Count 143 K/mcL (140-400); Red Blood Count 3.85 M/mcL (4.19-5.50); Red Cell Distribution Width 15.9 % (11.5-14.5); Segmented Neutrophils % 89.6 %; White Blood Count 5.3 K/mcL (4.3-11.1)
[2020-09-14 05:39] LABS: INR 1.3; Prothrombin Time 14.9 Seconds (9.4-12.1)
[2020-09-14 05:52] LABS: Albumin 3.7 g/dL (3.5-5.7); Albumin/Globulin Ratio 1.5 (1.1-2.2); Bilirubin,Total 0.6 mg/dL (0.3-1.0); Calcium 8.9 mg/dL (8.6-10.3); Chol/HDL Ratio 2.6 (0-4.9); Globulin 2.4 g/dL (2.4-3.5); Phosphorous 3.3 mg/dL (2.7-4.5); Potassium 4.2 mEq/L (3.5-5.1); Total Protein 6.1 g/dL (6.4-8.9)
[2020-09-14] MEDS ORDERED: *HR* Heparin 5,000 UNIT/ML VIAL IVP ONE (06:11)
[2020-09-14] MEDS ORDERED: *HR* Heparin 5,000 UNIT/ML VIAL IVP PRN ×2 (06:11)
[2020-09-14 07:23] LABS: Hematocrit 37.9 % (37.5-50.1); Hemoglobin 11.4 g/dL (12.9-16.9); Mean Corpuscular HGB Conc 30.1 g/dL (31.6-35.5); Mean Corpuscular Hemoglobin 29.1 pg (28.0-33.3); Mean Corpuscular Volume 96.7 fL (83.0-100.0); Mean Platelet Volume 11.2 fL (9.4-12.4); Platelet Count 138 K/mcL (140-400); Red Blood Count 3.92 M/mcL (4.19-5.50); Red Cell Distribution Width 15.9 % (11.5-14.5); White Blood Count 5.5 K/mcL (4.3-11.1)
[2020-09-14 07:32] LABS: INR 1.2; Prothrombin Time 14.3 Seconds (9.4-12.1)
[2020-09-14 07:36] LABS: Heparin anti-factor XA UFH < 0.04 IU/mL (0.30-0.70)
[2020-09-14] MEDS: Furosemide 40 MG/4 ML VIAL IVP SCH ×2 (08:19→20:04)
[2020-09-14] MEDS: Aspirin Enteric Coated 81 MG Tablet PO SCH (08:19)
[2020-09-14] MEDS: Heparin 25,000UNIT/250ML 1/2NS 25,000 UNIT/250 ML IV.SOLN IVC SCH (08:20)
[2020-09-14] MEDS ORDERED: Perflutren Lipid Microsphere 1.3 ML in 0.9 % Sodium Chloride 8.7 ML IVP PRN (09:58)
[2020-09-14] MEDS: Sacubitril/Valsartan 49/51 MG 1 TABLET PO SCH ×2 (11:27→20:04)
[2020-09-14] MEDS: carvediloL 25 MG TABLET PO SCH ×2 (11:27→17:33)
[2020-09-14] MEDS: Gabapentin 300 MG CAPSULE PO SCH (20:04)
[2020-09-14] MEDS: *HR* OxyCODONE Immed Rel 5 MG TABLET PO PRN (21:54)
[2020-09-14] MEDS ORDERED: Morphine Sulfate 2 MG/ML SYRINGE IVP ONE (22:44)
[2020-09-14 23:10] LABS: Bilirubin,Urine Negative (Negative); Blood,Urine Negative (Negative); Clarity,Urine Clear (Clear); Color,Urine Colorless (Yellow); Glucose,Urine (UA) Normal (Normal); Ketones,Urine Negative (Negative); Leukocyte Esterase,Urine Negative (Negative); Nitrite,Urine Negative (Negative); PH,Urine 6.5 pH Units (5.0-8.0); Protein,Urine Trace mg/dL (Neg-Trace); Urobilinogen,Urine Normal (Normal)
[2020-09-15] MEDS ORDERED: Morphine Sulfate 2 MG/ML SYRINGE IVP ONE (01:52)
[2020-09-15 02:10] LABS: Basophils % 0.2 %; Eosinophils % 0.3 %; Hematocrit 35.1 % (37.5-50.1); Hemoglobin 10.8 g/dL (12.9-16.9); Immature Granulocytes % 0.7 % (0-4); Lymphocytes # 0.6 K/mcL (0.6-4.6); Lymphocytes % 6.4 %; Mean Corpuscular HGB Conc 30.8 g/dL (31.6-35.5); Mean Corpuscular Hemoglobin 28.9 pg (28.0-33.3); Mean Corpuscular Volume 93.9 fL (83.0-100.0); Mean Platelet Volume 11.4 fL (9.4-12.4); Monocytes # 0.5 K/mcL (0.0-1.3); Monocytes % 4.9 %; Platelet Count 137 K/mcL (140-400); Red Blood Count 3.74 M/mcL (4.19-5.50); Red Cell Distribution Width 15.8 % (11.5-14.5); Segmented Neutrophils % 87.5 %
[2020-09-15 02:11] LABS: Neutrophils # 8.8 K/mcL (1.6-8.9)
[2020-09-15] MEDS: Nicotine 21 MG PATCH.TD24 TD SCH ×2 (02:26→22:55)
[2020-09-15 02:28] LABS: Calcium 8.8 mg/dL (8.6-10.3); Potassium 3.8 mEq/L (3.5-5.1)
[2020-09-15] MEDS ORDERED: Nitroglycerin 0.4 MG TAB.SUBL SL PRN (07:10)
[2020-09-15] MEDS: Sacubitril/Valsartan 49/51 MG 1 TABLET PO SCH (08:33)
[2020-09-15] MEDS: Gabapentin 300 MG CAPSULE PO SCH ×4 (08:33→22:54)
[2020-09-15] MEDS: Finasteride 5 MG TABLET PO SCH (08:34)
[2020-09-15] MEDS: Aspirin Enteric Coated 81 MG Tablet PO SCH (08:34)
[2020-09-15] MEDS: Furosemide 40 MG/4 ML VIAL IVP SCH ×2 (08:34→22:54)
[2020-09-15] MEDS: carvediloL 25 MG TABLET PO SCH ×2 (08:34→16:29)
[2020-09-15] MEDS: Isosorbide MONOnitrate (24 HR) 60 MG TAB.ER.24H PO SCH (08:38)
[2020-09-15] MEDS: calcitrioL 0.25 MCG CAPSULE PO SCH (08:42)
[2020-09-15] MEDS: *HR* OxyCODONE Immed Rel 5 MG TABLET PO PRN (08:43)
[2020-09-15] MEDS ORDERED: carvediloL 25 MG TABLET PO SCH (09:00)
[2020-09-15] MEDS ORDERED: Acetaminophen/Aspirin/Caffeine TABLET PO SCH (09:00)
[2020-09-15] MEDS ORDERED: Gabapentin 300 MG CAPSULE PO SCH (09:00)
[2020-09-15] MEDS: Heparin 25,000UNIT/250ML 1/2NS 25,000 UNIT/250 ML IV.SOLN IVC SCH (10:08)
[2020-09-15] MEDS: Budesonide/Formoterol 80/4.5 1 PUFF INH IH SCH ×2 (10:52→20:06)
[2020-09-15] MEDS ORDERED: amLODIPine 5 MG TABLET PO SCH (13:30)
[2020-09-15] MEDS: *HR* Heparin 5,000 UNIT/ML VIAL SQ SCH (16:30)
[2020-09-15] MEDS ORDERED: Carbidopa/Levodopa ER 50/200 TABLET PO SCH (18:00)
[2020-09-16] MEDS: Sacubitril/Valsartan 49/51 MG 1 TABLET PO SCH ×2 (00:36→13:51)
[2020-09-16] MEDS: Carbidopa/Levodopa ER 50/200 TABLET PO SCH ×2 (00:40→13:48)
[2020-09-16] MEDS: *HR* Heparin 5,000 UNIT/ML VIAL SQ SCH ×2 (06:05→20:04)
[2020-09-16] MEDS ORDERED: Furosemide 40 MG TABLET PO SCH (08:00)
[2020-09-16] MEDS ORDERED: Piperacillin/Tazobactam 3.375 GM in 0.9 % Sodium Chloride Mini Bag 100 ML IVPB SCH (08:00)
[2020-09-16 08:13] LABS: Basophils % 0.2 %; Eosinophils % 0.5 %; Hematocrit 34.4 % (37.5-50.1); Hemoglobin 10.5 g/dL (12.9-16.9); Immature Granulocytes % 0.5 % (0-4); Lymphocytes # 0.4 K/mcL (0.6-4.6); Mean Corpuscular HGB Conc 30.5 g/dL (31.6-35.5); Mean Corpuscular Hemoglobin 29.2 pg (28.0-33.3); Mean Corpuscular Volume 95.8 fL (83.0-100.0); Mean Platelet Volume 11.6 fL (9.4-12.4); Monocytes # 0.4 K/mcL (0.0-1.3); Monocytes % 6.6 %; Neutrophils # 5.5 K/mcL (1.6-8.9); Platelet Count 116 K/mcL (140-400); Red Blood Count 3.59 M/mcL (4.19-5.50); Red Cell Distribution Width 15.8 % (11.5-14.5); Segmented Neutrophils % 86.2 %; White Blood Count 6.4 K/mcL (4.3-11.1)
[2020-09-16 08:31] LABS: Albumin 3.7 g/dL (3.5-5.7); Albumin/Globulin Ratio 1.5 (1.1-2.2); Bilirubin,Total 0.8 mg/dL (0.3-1.0); Calcium 8.5 mg/dL (8.6-10.3); Globulin 2.4 g/dL (2.4-3.5); Potassium 3.8 mEq/L (3.5-5.1); Total Protein 6.1 g/dL (6.4-8.9)
[2020-09-16] MEDS ORDERED: EPHEDrine 50 MG/ML VIAL ONE (10:35)
[2020-09-16] MEDS: Budesonide/Formoterol 80/4.5 1 PUFF INH IH SCH ×2 (10:37→22:30)
[2020-09-16] MEDS ORDERED: Lidocaine -MPF 2% 2 ML VIAL ONE (10:51)
[2020-09-16] MEDS ORDERED: 0.9 % Sodium Chloride 250 ML IVC ONE (12:31)
[2020-09-16] MEDS: Gabapentin 300 MG CAPSULE PO SCH ×2 (13:47→13:56)
[2020-09-16] MEDS: Finasteride 5 MG TABLET PO SCH (13:47)
[2020-09-16] MEDS: calcitrioL 0.25 MCG CAPSULE PO SCH (13:48)
[2020-09-16] MEDS: Aspirin Enteric Coated 81 MG Tablet PO SCH (13:48)
[2020-09-16] MEDS: Piperacillin/Tazobactam 3.375 GM in 0.9 % Sodium Chloride Mini Bag 100 ML IVPB SCH (13:49)
[2020-09-16] MEDS: carvediloL 25 MG TABLET PO SCH (13:51)
[2020-09-16] MEDS: Isosorbide MONOnitrate (24 HR) 60 MG TAB.ER.24H PO SCH (13:51)
[2020-09-16] MEDS ORDERED: Simethicone/Sodium Bic/Citr Ac 1 EACH GRAN.EF.PK PO ONE (14:47)
[2020-09-16] MEDS ORDERED: E-Z-HD (BARIUM SULF) SUSPENSION PO ONE (14:47)
[2020-09-16] MEDS ORDERED: E-Z-PAQUE (BARIUM SULF) SUSP 1 BOTTLE PO ONE (14:47)
[2020-09-16] MEDS: Nicotine 21 MG PATCH.TD24 TD SCH (16:53)
[2020-09-17] MEDS: Piperacillin/Tazobactam 3.375 GM in 0.9 % Sodium Chloride Mini Bag 100 ML IVPB SCH ×2 (00:19→09:16)
[2020-09-17] MEDS: *HR* Heparin 5,000 UNIT/ML VIAL SQ SCH (05:49)
[2020-09-17] MEDS: Budesonide/Formoterol 80/4.5 1 PUFF INH IH SCH (07:44)
[2020-09-17] MEDS: Aspirin Enteric Coated 81 MG Tablet PO SCH (09:16)
[2020-09-17] MEDS: Isosorbide MONOnitrate (24 HR) 60 MG TAB.ER.24H PO SCH (09:17)
[2020-09-17] MEDS: Finasteride 5 MG TABLET PO SCH (09:18)
[2020-09-17 15:28] VITALS: BP 155/88
[2020-09-17] MEDS ORDERED: Carbidopa/Levodopa ER 50/200 TABLET PO SCH ×2 (18:00→21:00)
== END 2020-09-17 15:55 | disposition home or self-care (01) | DRG 280 ==
LOC: 2NENU → SUATTDRO 09-14 01:34
PROVIDERS: ADMIT Internal Medicine; ATTEND Internal Medicine

== ENCOUNTER 2022-02-08 11:48 | Inpatient (IN) ==
[2022-02-08] MEDS ORDERED: 0.9 % Sodium Chloride 1,000 ML IVC ONE ×2 (11:59→12:58)
[2022-02-08] MEDS ORDERED: Iopamidol - 370 500 ML MLS IVP ONE ×2 (12:00→16:28)
[2022-02-08 12:26] LABS: Hematocrit 29.1 % (37.5-50.1); Hemoglobin 8.8 g/dL (12.9-16.9); Mean Corpuscular HGB Conc 30.2 g/dL (31.6-35.5); Mean Corpuscular Hemoglobin 28.7 pg (28.0-33.3); Mean Corpuscular Volume 94.8 fL (83.0-100.0); Mean Platelet Volume 11.1 fL (9.4-12.4); Platelet Count 176 K/mcL (140-400); Red Blood Count 3.07 M/mcL (4.19-5.50); Red Cell Distribution Width 15.1 % (11.5-14.5); White Blood Count 11.2 K/mcL (4.3-11.1)
[2022-02-08 13:02] LABS: Calcium 9.3 mg/dL (8.6-10.3); Potassium 4.4 mEq/L (3.5-5.1); Troponin I 0.59 ng/mL (< 0.04)
[2022-02-08 14:10] LABS: Bilirubin,Urine Negative (Negative); Blood,Urine Negative (Negative); Clarity,Urine Clear (Clear); Color,Urine Light-Yellow (Yellow); Glucose,Urine (UA) Normal (Normal); Ketones,Urine Negative (Negative); Leukocyte Esterase,Urine Negative (Negative); Mucus,Urine Few per lpf (None-Few); Nitrite,Urine Negative (Negative); Protein,Urine 30 mg/dL (Neg-Trace); RBC,Urine 0-3 per hpf (0-3); Specific Gravity,Urine 1.014 (1.010-1.025); Squamous Epithelial Cell,Urine Few per hpf (None-Few); Urobilinogen,Urine Normal (Normal); WBC,Urine 0-3 per hpf (0-3)
[2022-02-09] MEDS ORDERED: Naloxone 0.4 MG/ML INJ IVP PRN (01:28)
[2022-02-09] MEDS ORDERED: Ondansetron 4 MG/2 ML VIAL IVP PRN (01:28)
[2022-02-09] MEDS ORDERED: Acetaminophen 325 MG TABLET PO PRN (01:28)
[2022-02-09 02:30] LABS: Hematocrit 26.9 % (37.5-50.1); Hemoglobin 8.4 g/dL (12.9-16.9); Mean Corpuscular HGB Conc 31.2 g/dL (31.6-35.5); Mean Corpuscular Hemoglobin 29.6 pg (28.0-33.3); Mean Corpuscular Volume 94.7 fL (83.0-100.0); Mean Platelet Volume 10.9 fL (9.4-12.4); Platelet Count 166 K/mcL (140-400); Red Blood Count 2.84 M/mcL (4.19-5.50); White Blood Count 10.1 K/mcL (4.3-11.1)
[2022-02-09 02:49] LABS: % Iron Saturation 52 % (20-55); Iron 228 mcg/dL (65-175); Transferrin 313 mg/dL (203-362)
[2022-02-09 02:50] LABS: Calcium 9.5 mg/dL (8.6-10.3); Potassium 4.7 mEq/L (3.5-5.1)
[2022-02-09] MEDS ORDERED: 0.9 % Sodium Chloride 1,000 ML IVC SCH (03:00)
[2022-02-09] MEDS: Gabapentin 300 MG CAPSULE PO SCH ×3 (03:11→13:31)
[2022-02-09 03:21] LABS: Folate > 22.3 ng/mL (3.0-16.0); Vitamin B12 413 pg/mL (250-1100)
[2022-02-09] MEDS: Carbidopa/Levodopa ER 50/200 TABLET PO SCH ×2 (03:30→17:24)
[2022-02-09] MEDS: Pantoprazole 40 MG VIAL IVP SCH ×2 (05:04→17:23)
[2022-02-09] MEDS: Nicotine 14 MG PATCH.TD24 TD SCH (07:52)
[2022-02-09] MEDS ORDERED: SODIUM CHLORIDE/NAHCO3/KCL/PEG 4,000 ML SOLN.RECON PO ONE (17:00)
[2022-02-10 01:55] LABS: Calcium 9.1 mg/dL (8.6-10.3); Potassium 3.9 mEq/L (3.5-5.1)
[2022-02-10 02:02] LABS: Hematocrit 25.5 % (37.5-50.1); Hemoglobin 7.8 g/dL (12.9-16.9); Mean Corpuscular HGB Conc 30.6 g/dL (31.6-35.5); Mean Corpuscular Hemoglobin 29.5 pg (28.0-33.3); Mean Corpuscular Volume 96.6 fL (83.0-100.0); Mean Platelet Volume 11.2 fL (9.4-12.4); Platelet Count 189 K/mcL (140-400); Red Blood Count 2.64 M/mcL (4.19-5.50); Red Cell Distribution Width 15.2 % (11.5-14.5); White Blood Count 10.2 K/mcL (4.3-11.1)
[2022-02-10] MEDS ORDERED: Albuterol 2.5 MG/3 ML NEBULIZER IH PRN (05:24)
[2022-02-10] MEDS ORDERED: NON-FORMULARY MEDICATION 1 EACH EACH (Albuterol Sulfate 8.5 GM Hfa.Aer.Ad) IH PRN (05:24)
[2022-02-10] MEDS ORDERED: Nitroglycerin 0.4 MG TAB.SUBL SL PRN (05:24)
[2022-02-10] MEDS: Pantoprazole 40 MG VIAL IVP SCH ×2 (05:31→19:58)
[2022-02-10] MEDS: Nicotine 14 MG PATCH.TD24 TD SCH (07:36)
[2022-02-10] MEDS: calcitrioL 0.25 MCG CAPSULE PO SCH ×2 (07:36→19:57)
[2022-02-10] MEDS: Fluconazole 100 MG TABLET PO SCH ×2 (07:36→22:36)
[2022-02-10] MEDS: Finasteride 5 MG TABLET PO SCH ×2 (07:37→22:37)
[2022-02-10] MEDS: Gabapentin 300 MG CAPSULE PO SCH ×2 (07:37→19:58)
[2022-02-10] MEDS ORDERED: Sacubitril/Valsartan 49/51 MG 1 TABLET PO SCH (09:00)
[2022-02-10] MEDS ORDERED: Furosemide 40 MG TABLET PO SCH (09:00)
[2022-02-10] MEDS: Budesonide/Formoterol 80/4.5 1 PUFF INH IH SCH ×2 (10:05→19:53)
[2022-02-10] MEDS: Tiotropium 10 INH DOSE IH SCH (10:06)
[2022-02-10] MEDS ORDERED: 0.9 % Sodium Chloride 250 ML IVC SCH (12:00)
[2022-02-10] MEDS ORDERED: Lidocaine -MPF 2% 2 ML VIAL ONE ×2 (16:30)
[2022-02-10] MEDS: carvediloL 6.25 MG TABLET PO SCH ×2 (16:32→22:37)
[2022-02-10] MEDS ORDERED: EPHEDrine sulfate 50 MG/10 ML VIAL IVP ONE (17:38)
[2022-02-10] MEDS: Carbidopa/Levodopa ER 50/200 TABLET PO SCH (19:58)
[2022-02-10] MEDS ORDERED: 0.9 % Sodium Chloride 250 ML ONE (22:10)
[2022-02-10] MEDS: Sacubitril/Valsartan 49/51 MG 1 TABLET PO SCH (22:38)
[2022-02-11 05:36] LABS: Hematocrit 23.6 % (37.5-50.1); Hemoglobin 7.5 g/dL (12.9-16.9); Mean Corpuscular HGB Conc 31.8 g/dL (31.6-35.5); Mean Corpuscular Hemoglobin 29.9 pg (28.0-33.3); Mean Platelet Volume 10.6 fL (9.4-12.4); Platelet Count 149 K/mcL (140-400); Red Blood Count 2.51 M/mcL (4.19-5.50); Red Cell Distribution Width 15.4 % (11.5-14.5); White Blood Count 5.7 K/mcL (4.3-11.1)
[2022-02-11 05:52] LABS: Calcium 8.6 mg/dL (8.6-10.3)
[2022-02-11] MEDS: Pantoprazole 40 MG VIAL IVP SCH (06:34)
[2022-02-11] MEDS: Tiotropium 10 INH DOSE IH SCH (07:23)
[2022-02-11] MEDS: Budesonide/Formoterol 80/4.5 1 PUFF INH IH SCH (07:24)
[2022-02-11] MEDS ORDERED: Aspirin Enteric Coated 81 MG Tablet PO SCH (09:00)
[2022-02-11 09:56] VITALS: BP 154/55; PULSE 67; TEMP 97.8; O2SAT 95
[2022-02-11] MEDS: carvediloL 6.25 MG TABLET PO SCH (09:56)
[2022-02-11] MEDS: Fluconazole 100 MG TABLET PO SCH (09:57)
[2022-02-11] MEDS: Sacubitril/Valsartan 49/51 MG 1 TABLET PO SCH (09:57)
[2022-02-11] MEDS: Nicotine 14 MG PATCH.TD24 TD SCH (09:58)
[2022-02-11] MEDS: Finasteride 5 MG TABLET PO SCH (09:58)
[2022-02-11] MEDS: Gabapentin 300 MG CAPSULE PO SCH (09:58)
== END 2022-02-11 12:23 | disposition home or self-care (01) | DRG 280 ==
LOC: EMEROOARM 11:48 → 2NENU 11:48 → SUATTDRO 02-09 00:26 → 2NENU 02-09 01:37
PROVIDERS: ADMIT Internal Medicine; ATTEND Student in an Organized Health Care Education/Training Program
PROC: ENDOEBX (2022-02-10 11:20)